=== PATIENT | male | born 1940 | race Caucasian/White ===

== ENCOUNTER → 2020-04-13 06:53 | Outpatient (CLI) | payer MEDICARE, OTHER, SELFPAY ==
--- NOTE | 2020-04-13 | DI.US.S_ITS ---
PROCEDURE: US CAROTID DOPPLER BI INDICATIONS: DIZZINESS TECHNIQUE: Color and pulse Doppler interrogation was performed of both carotid systems, with image documentation and velocity measurements. COMPARISON: None. FINDINGS: Stenosis calculations are based on SRU (Society of Radiologists in Ultrasound) criteria. Right side: Brachial blood pressure: 128/67 mm Hg. Common carotid artery peak systolic velocity: 75 cm/sec. Internal carotid artery peak systolic velocity: 89 cm/sec. Internal carotid artery end diastolic velocity: 20 cm/sec. External carotid artery peak systolic velocity: 100 to cm/sec. ICA/CCA peak systolic ratio: 1.2 . Paz scale imaging description: Mild calcific and soft plaque Percent internal carotid artery stenosis: Less than 50% stenosis . Vertebral artery: Flow direction is antegrade. Left side: Brachial blood pressure: 128/64 mm Hg. Common carotid artery peak systolic velocity: 120 cm/sec. Internal carotid artery peak systolic velocity: 87 cm/sec. Internal carotid artery end diastolic velocity: 15 cm/sec. External carotid artery peak systolic velocity: 128 cm/sec. ICA/CCA peak systolic ratio: 0.7 . Paz scale imaging description: Mild calcific and soft plaque Percent internal carotid artery stenosis: Less than 50% stenosis . Vertebral artery: Flow direction is antegrade. IMPRESSION: Less than 50% stenosis within the internal carotid arteries bilaterally. Vertebral arterial flow is antegrade in direction. Dictated by: Chad Ludwig M.D. on 04/13/2020 at 10:24 Approved by: Chad Ludwig M.D. on 04/13/2020 at 10:26
--- NOTE | 2020-04-13 07:02 | DI.ECHO.S_ITS ---
[facility] +---------+ : : [address] : : : : [id number] : : : : Phone: [phone] Echocardiogram Report + + :Name: CHAYA BOOGIE Study Date: 04/13/2020 Height: 70 in : :[facility] Weight: 180 lb : : Gender: Male BSA: 2.0 m2 : :: 1940 Age: 79 yrs BP: 166/86 mmHg: :Reason For Study: DYSPNEA : :Ordering Physician: JENNY, : :JOLLY Performed By: Shakira Dickey : :Referring: JOLLY ALVARADO : + + Interpretation Summary Afib with variable heart rate (49-63 bpm during exam). Normal LV size, wall thickness, wall motion and LV systolic function. EF is 60-65%. Severe biatrial enlargement. Mild MAC with mild associated mitral regurgitation. Aortic valve leaflets are mildly thickened and calcified; there is mild associated aortic regurgitation. Estimated PA systolic pressure is 40 mm Hg assuming RA pressure of 3 mm Hg. No prior study available for comparison. Procedure: A two-dimensional transthoracic echocardiogram with color flow and Doppler was performed. The study quality was technically adequate. There is no prior echocardiogram noted for this patient. The patient was in atrial fibrillation with heart rates between 49-63 bpm during the exam. Left Ventricle: The left ventricle is normal in size and wall thickness. The ejection fraction is estimated to be 60-65%. Diastolic function could not be accurately assessed due to atrial fibrillation. Right Ventricle: The right ventricle is normal in size and function. Atria: The left atrium is severely dilated. The right atrium is severely dilated. There is no Doppler evidence for an interatrial shunt. Mitral Valve: The mitral valve is normal in structure and function. There is mild mitral annular calcification. There is mild mitral regurgitation. Aortic Valve: The aortic valve is mildly calcified. The aortic valve is trileaflet. The aortic valve opens well. There is no aortic valve stenosis. There is mild aortic regurgitation. Tricuspid Valve: The tricuspid valve is not well visualized, but is grossly normal. The right ventricular systolic pressure is estimated to be at least 40 mmHg based on an estimated right atrial pressure of 3 mm Hg. There is mild tricuspid regurgitation. Pulmonic Valve: The pulmonic valve is not well seen, but is grossly normal. There is no pulmonic valvular regurgitation. Great Vessels: The aortic root is normal size. The ascending aorta is mildly enlarged. The IVC is of normal diameter and collapses greater than 50% with a sniff. This suggests a low right atrial pressure of 3 mm Hg. Pericardium/ Pleura There is no pericardial effusion. There is no pleural effusion. MMode/2D Measurements & Calculations LVIDd: 3.1 cm LVOT diam: 2.0 cm LVIDs: 2.1 cm Ao root diam: 3.3 cm FS: 32.8 % asc Aorta Diam: 3.5 cm EPSS: 0.75 cm Ao Arch Diam (Prox Trans): 3.6 cm IVSd: 0.86 cm LVPWd: 1.1 cm LV berrios. diameter/BSA (cm/m^2): 1.6 LV sys. diameter/BSA (cm/m^2): 1.1 LA A2 area: 30.2 cm2 RA long axis: 7.3 cm LA A4 area: 31.1 cm2 RA area: 33.1 cm2 LA length (vol): 7.5 cm RA vol: 126.7 ml LA vol: 107.1 ml RA : 63.5 ml/m2 LA vol index: 53.7 ml/m2 IVC diam: 1.6 cm RVD1 (basal): 3.7 cm TAPSE: 1.8 cm Doppler Measurements & Calculations Ao V2 max: 116.9 cm/sec LVOT Max Santo: 88.2 cm/sec Ao V2 mean: 82.2 cm/sec LV V1 max P.1 mmHg Ao max P.5 mmHg LV V1 VTI: 20.3 cm Ao mean P.1 mmHg FERNADNA(I,D): 2.3 cm2 Ao V2 VTI: 27.5 cm FERNANDA(V,D): 2.4 cm2 sev ratio: 0.74 FERNANDA indexed to BSA (cm^2/m^2): 1.2 MV E max santo: 131.8 cm/sec TR max santo: 305.0 cm/sec MV A max santo: 29.3 cm/sec TR max P.2 mmHg MV E/A: 4.5 PA V2 max: 82.2 cm/sec Med Peak E' Santo: 6.5 cm/sec PA V2 mean: 55.1 cm/sec E/E' med: 20.3 PA mean P.4 mmHg Lat Peak E' Santo: 10.1 cm/sec PA pr(Accel): 53.3 mmHg E/E' lat: 13.1 E/e' average: 16.7 MV dec time: 0.22 sec SV(LVOT): 64.4 ml Electronically signed by: Dorina Jimenez Physician:04/13/2020 07:25 PM
== END ==
PROVIDERS: PCP Family Medicine; Referring Provider Internal Medicine Cardiovascular Disease; Visit Provider Internal Medicine Cardiovascular Disease
DX: I65.23 Occlusion and stenosis of bilateral carotid arteries (principal); I08.3 Combined rheumatic disorders of mitral, aortic and tricuspid valves; I77.89 Other specified disorders of arteries and arterioles; R42 Dizziness and giddiness; R06.00 Dyspnea, unspecified; R00.2 Palpitations; R26.9 Unspecified abnormalities of gait and mobility
CPT/HCPCS: 93306; 93880

== ENCOUNTER 2021-01-07 22:46 | Observation (INO) | payer MEDICARE, OTHER, SELFPAY ==
[2021-01-07 22:49] VITALS: BP 143/66; PULSE 78; RESP 18; TEMP 37.2; O2SAT 97
--- NOTE | 2021-01-07 23:03 | DI.RAD.S_ITS ---
PROCEDURE: XR CHEST 1V INDICATIONS: chest pain TECHNIQUE: One view of the chest was acquired. COMPARISON: None. FINDINGS: Surgical changes and devices: None. Lungs and pleura: Bibasilar patchy airspace opacities. No pleural effusions or pneumothorax. Mediastinum: Mediastinal contours appear normal. Heart size is normal. Bones and chest wall: No suspicious bony lesions. Overlying soft tissues appear unremarkable. IMPRESSION: Bibasilar patchy airspace opacities, left greater than right, suspicious for pneumonia. Dictated by: Lainey Duron MD, PhD on 01/07/2021 at 23:33 Approved by: Lainey Duron MD, PhD on 01/07/2021 at 23:34
[2021-01-07 23:05] VITALS: BP 143/66; PULSE 82; O2SAT 98
[2021-01-07 23:07] VITALS: BP 140/65; PULSE 78; RESP 20; O2SAT 97
[2021-01-07 23:25] LABS: Add Manual Diff / Slide Review NO; Basophils Absolute Auto 0 /uL (0-100); Basophils Percent Auto 0.1 % (0-2); Eosinophils Absolute Auto 0 /uL (0-450); Eosinophils Percent Auto 0.3 % (2-4); Hematocrit 37.1 % (41-53); Hemoglobin 12.9 g/dL (13.5-17.5); Lymphocytes Absolute Auto 500 /uL (1100-4500); Lymphocytes Percent Auto 8.8 % (25-40); Mean Corpuscular HGB Conc 34.9 % (30-36); Mean Corpuscular Volume 88.7 fL (80-100); Monocytes Absolute Auto 400 /uL (0-900); Monocytes Percent Auto 7.6 % (3-14); Neutrophils Absolute Auto 4500 /uL (1500-7000); Neutrophils Percent Auto 83.2 % (50-75); Platelet Count 161 X10^3/uL (150-400); Red Blood Cell Count 4.18 X10^6/uL (4.5-5.9); Red Cell Distribution Width 14.9 % (11.6-14.8); White Blood Cell Count 5.4 X10^3/uL (4.5-11.0)
[2021-01-07 23:30] VITALS: BP 118/56; PULSE 76; RESP 22; O2SAT 94
[2021-01-07 23:33] LABS: Alanine Aminotransferase 31 IU/L (<50); Albumin 4.2 g/dL (3.5-5.0); Albumin Globulin Ratio 1.6 (1.0-2.8); Alkaline Phosphatase 76 U/L (38-126); Aspartate Aminotransferase 35 IU/L (17-59); Bilirubin Total 1.7 mg/dL (0.2-1.3); Blood Urea Nitrogen 24 mg/dL (9-20); Calcium 9.4 mg/dL (8.4-10.2); Carbon Dioxide 25 mmol/L (22-32); Chloride 88 mmol/L (98-107); Creatine Kinase 47 U/L (55-170); Estimated Glomerular Filt Rate > 60.0 mL/min (>60); Globulin 2.6 g/dL (1.7-4.1); Glucose 111 mg/dL (80-110); HEMOLYSIS < 15 (0-50); Lipase 113 U/L (23-300); Potassium 3.7 mmol/L (3.4-5.1); Sodium 124 mmol/L (137-145); Total Protein 6.8 g/dL (6.3-8.2)
[2021-01-07 23:45] LABS: Troponin I < 0.012 ng/mL (0.01-0.034)
[2021-01-08] VITALS (25 sets, daily range): BP systolic 115–167; BP diastolic 58–82; PULSE 61–80; RESP 15–27; TEMP 36.8–38.5; O2SAT 94–99; BMI 25.4
[2021-01-08] MEDS: ACETAMINOPHEN 325 MG TABLET 975 MG PO (03:09)
[2021-01-08] MEDS: SODIUM CHLORIDE 0.9% 1,000 ML 1000 ML IV (03:10)
[2021-01-08 03:31] LABS: NT-proBNP (BNP-Adult 18+) 834 pg/mL (<450)
[2021-01-08 03:38] LABS: Procalcitonin 0.11 ng/mL (<0.5)
--- NOTE | 2021-01-08 03:41 | ED_ITS ---
HPI - Weakness General Chief complaint: Weakness Stated complaint: COVID POSITIVE FEVER WEAKNESS Time Seen by Provider: 01/08/21 02:54 Source: patient and family Mode of arrival: Wheelchair Limitations: no limitations History of Present Illness HPI Narrative: This is an 80-year-old male comes emergency department with positive at home COVID test. Patient surgery experiencing symptoms November 29. Patient has had fevers intermittently. He has had occasional headaches. He denies any chest pain, no current shortness of breath. He denies any nausea or vomiting he had some loose stools but is not have any bloody diarrhea. No abdominal pain. Patient notes that he has had some generalized weakness. He significantly had issues getting out of chairs and been able to do so get from a seated position or lying position for the last 24-48 hours. Family patient states he seems quite a bit worse over the last 12 hours. Patient does have a cardiac history with cardiac stents. He is on aspirin, atorvastatin, h ydrochlorothiazide, Coreg, metformin and warfarin for atrial fibrillation. He has been taking hydroxychloroquine which he had prescribed by someone in [place]. Patient denies any tobacco use. He does drink 2-3 glasses of wine nightly, no recreational drugs. Related Data Home Medications Medication Instructions Recorded Confirmed aspirin 81 mg tablet 81 mg PO DAILY 01/07/21 01/08/21 atorvastatin 40 mg tablet (Lipitor) 40 mg PO DAILY 01/07/21 01/08/21 losartan 100 mg tablet (Cozaar) 100 mg PO DAILY 01/07/21 01/07/21 metformin 500 mg tablet 500 mg PO BID 01/07/21 01/08/21 warfarin 5 mg tablet 5 mg PO DAILY 01/07/21 01/08/21 Allergies Allergy/AdvReac Type Severity Reaction Status Date / Time No Known Drug Allergies Allergy Verified 01/08/21 10:19 Review of Systems Review of Systems ROS Unobtainable: All systems reviewed & are unremarkable except as noted in HPI and below Patient History Medical History (Updated 01/08/21 @ 08:28 by Mitul Campbell DO) Afib CAD (coronary artery disease) HTN (hypertension) Type 2 diabetes mellitus Surgical History (Updated 01/08/21 @ 08:28 by Mitul Campbell DO) Hx of heart artery stent Social History household members: significant other Smoking Status: Never smoker Smoking Status: Never smoker alcohol intake frequency: 0-2 drinks per day Exam Narrative Exam Narrative: GENERAL: Alert and oriented x three, elderly male in mild distress. Patient does feel warm to touch. HEENT: Head normocephalic, atraumatic, EOMI, pupils reactive, face symmetric, m oist mucous membranes NECK: Supple, full range of motion CARDIOVASCULAR: Regular rate and rhythm without murmurs, rubs or gallops. RESPIRATORY: Breath sounds equal bilaterally, no wheezes rales or rhonchi. No tachypnea accessory muscle use. ABDOMEN: Soft, nontender. Normoactive bowel sounds all 4 quadrants. No guarding or rebound, rigidity, no mass : No CVA tenderness EXTREMITIES: Normal range of motion, no clubbing or edema. Neurovascularly intact NEUROLOGICAL: Cranial nerves II through XII grossly intact. Moving all extremities SKIN: Warm, dry, no petechiae, no rashes or lesions. Initial Vital Signs Initial Vital Signs: Vital Signs Temperature 99.0 F 01/07/21 22:49 Pulse Rate 78 01/07/21 22:49 Respiratory Rate 18 01/07/21 22:49 Blood Pressure 143/66 H 01/07/21 22:49 Pulse Oximetry 97 01/07/21 22:49 Course Orders Ordered: Discontinued Medications Acetaminophen (Acetaminophen 325 Mg Tablet) 975 mg PO NOW ONE Stop: 01/08/21 03:05 Last Admin: 01/08/21 03:09 Dose: 975 mg Documented by: AMANDEEP Acetaminophen (Acetaminophen 325 Mg Tablet) 650 mg PO Q6HR PRN PRN Reason: Fever/Mild Pain (1-3) Atorvastatin Calcium (Atorvastatin 20 Mg Tablet) 40 mg PO DAILY KECIA Dextrose (Dextrose 50 % In Water 25 Gm/50 Ml Syringe) 25 gm IV PRN PRN PRN Reason: Hypoglycemia Enoxaparin Sodium (Enoxaparin 40 Mg/0.4 Ml Syringe) 40 mg SUBCUT DAILY KECIA Sodium Chloride (Normal Saline 0.9%) 1,000 mls @ 1,000 mls/hr IV BOLUS ONE Stop: 01/08/21 03:53 Last Infusion: 01/08/21 04:57 Dose: 0 mls/hr Documented by: Admin: 01/08/21 03:10 Dose: 1,000 mls/hr Documented by: AMANDEEP Insulin Human Lispro (Insulin Lispro 100 Unit/Ml 3ml Vial) 0 unit SUBCUT ACHS [facility]; Protocol Last Admin: 01/08/21 12:30 Dose: 2 unit Documented by: ZOYA Cosigned by: SARAVANAN Losartan Potassium (Losartan 50 Mg Tablet) 100 mg PO DAILY [facility] Naloxone HCl (Naloxone 0.4 Mg/Ml Vial) 0.2 mg IV Q2MIN PRN PRN Reason: Opiate Reversal Stored In Pharmacy 0 each PO . [facility] Potassium Chloride (Potassium Chloride 20 Meq Tab) 40 meq PO NOW ONE Stop: 01/08/21 12:02 Last Admin: 01/08/21 12:28 Dose: 40 meq Documented by: ZOYA Warfarin Sodium (Warfarin 5 Mg Tablet) 5 mg PO DAILY [facility] Consultations Consultation #1: CATRINA Owen, initially reviewed patient. Patient has not been hypoxic but is hyponatremic. She asks that we give 1L fluids. Plan to recontact when rest of labs are back. Discussed today's findings, patient is positive for COVID pneumonia with elevated markers. He is not hypoxic. His vital signs been fairly appropriate he has been febrile in department. He is complaining of weakness and had difficulty ambulating at home. She asked that repeat electrolytes as patient is hyponatremic. And she feels uncomfortable accepting at this time and would like to discuss with the hospitalist. Vital Signs Vital signs: Vital Signs - 8 hr 01/07/21 22:49 01/07/21 23:05 01/07/21 23:07 Temperature 99.0 F Pulse Rate 78 82 78 Respiratory Rate 18 20 Blood Pressure 143/66 H 143/66 H 140/65 Pulse Oximetry 97 98 97 01/07/21 23:30 01/08/21 00:00 01/08/21 00:30 Temperature Pulse Rate 76 74 74 Respiratory Rate 22 21 20 Blood Pressure 118/56 L 122/58 L 130/61 Pulse Oximetry 94 95 95 01/08/21 01:00 01/08/21 01:30 01/08/21 02:00 Temperature Pulse Rate 78 73 73 Respiratory Rate 21 20 20 Blood Pressure 134/69 141/66 H 130/64 Pulse Oximetry 96 97 98 01/08/21 02:30 01/08/21 03:00 01/08/21 03:30 Temperature 101.3 F H Pulse Rate 75 77 71 Respiratory Rate 19 27 H 21 Blood Pressure 144/68 H 161/72 H 167/73 H Pulse Oximetry 96 98 98 01/08/21 04:00 01/08/21 04:13 Temperature 98.3 F Pulse Rate 77 Respiratory Rate Blood Pressure 152/67 H Pulse Oximetry 96 MDM - Weakness Lab Data Result diagrams: 01/07/21 23:15 01/08/21 15:20 Labs: Lab Results 01/07/21 01/07/21 01/07/21 Range/Units 23:15 23:15 23:15 WBC 5.4 (4.5-11.0) X10^3/uL RBC 4.18 L (4.5-5.9) X10^6/uL Hgb 12.9 L (13.5-17.5) g/dL Hct 37.1 L (41-53) % MCV 88.7 (80-100) fL MCH 31.0 (26-34) PG MCHC 34.9 (30-36) % RDW 14.9 H (11.6-14.8) % Plt Count 161 (150-400) X10^3/uL Neut % (Auto) 83.2 H (50-75) % Lymph % (Auto) 8.8 L (25-40) % Emanuel % (Auto) 7.6 (3-14) % Eos % (Auto) 0.3 L (2-4) % Baso % (Auto) 0.1 (0-2) % Neut # (Auto) 4500 (1655-3536) /uL Lymph # (Auto) 500 L (3831-3621) /uL Emanuel # (Auto) 400 (0-900) /uL Eos # (Auto) 0 (0-450) /uL Baso # (Auto) 0 (0-100) /uL PT (10.1-12.7) SECONDS INR (0.9-1.3) D-Dimer (<230) ng/mL Sodium 124 L (137-145) mmol/L Potassium 3.7 (3.4-5.1) mmol/L Chloride 88 L (98-107) mmol/L Carbon Dioxide 25 (22-32) mmol/L BUN 24 H (9-20) mg/dL Creatinine 0.89 (0.66-1.25) mg/dL Estimated GFR > 60.0 (>60) mL/min BUN/Creatinine Ratio 27.0 H (6-22) Glucose 111 H (80-110) mg/dL Lactate (0.7-2.1) mmol/L Calcium 9.4 (8.4-10.2) mg/dL Ferritin 648 H (18-464) ng/mL Total Bilirubin 1.7 H (0.2-1.3) mg/dL AST 35 (17-59) IU/L ALT 31 (<50) IU/L Alkaline Phosphatase 76 (38-126) U/L Total Creatine Kinase 47 L (55-170) U/L CK-MB (CK-2) TNP CK-MB (CK-2) Rel Index TNP Troponin I < 0.012 (0.01-0.034) ng/mL C-Reactive Protein 6.0 H (<1.0) mg/dL NT-Pro-B Natriuret Pep 834 H (<450) pg/mL Total Protein 6.8 (6.3-8.2) g/dL Albumin 4.2 (3.5-5.0) g/dL Globulin 2.6 (1.7-4.1) g/dL Albumin/Globulin Ratio 1.6 (1.0-2.8) Lipase 113 (23-300) U/L Procalcitonin 0.11 (<0.5) ng/mL SARS-CoV-2 (PCR) (Negative) 01/07/21 01/08/21 01/08/21 Range/Units 23:15 03:18 03:18 WBC (4.5-11.0) X10^3/uL RBC (4.5-5.9) X10^6/uL Hgb (13.5-17.5) g/dL Hct (41-53) % MCV (80-100) fL MCH (26-34) PG MCHC (30-36) % RDW (11.6-14.8) % Plt Count (150-400) X10^3/uL Neut % (Auto) (50-75) % Lymph % (Auto) (25-40) % Emanuel % (Auto) (3-14) % Eos % (Auto) (2-4) % Baso % (Auto) (0-2) % Neut # (Auto) (4398-9724) /uL Lymph # (Auto) (2857-3936) /uL Emanuel # (Auto) (0-900) /uL Eos # (Auto) (0-450) /uL Baso # (Auto) (0-100) /uL PT 25.6 H (10.1-12.7) SECONDS INR 2.2 H (0.9-1.3) D-Dimer 807 H (<230) ng/mL Sodium (137-145) mmol/L Potassium (3.4-5.1) mmol/L Chloride (98-107) mmol/L Carbon Dioxide (22-32) mmol/L BUN (9-20) mg/dL Creatinine (0.66-1.25) mg/dL Estimated GFR (>60) mL/min BUN/Creatinine Ratio (6-22) Glucose (80-110) mg/dL Lactate 2.0 (0.7-2.1) mmol/L Calcium (8.4-10.2) mg/dL Ferritin (18-464) ng/mL Total Bilirubin (0.2-1.3) mg/dL AST (17-59) IU/L ALT (<50) IU/L Alkaline Phosphatase (38-126) U/L Total Creatine Kinase (55-170) U/L CK-MB (CK-2) CK-MB (CK-2) Rel Index Troponin I (0.01-0.034) ng/mL C-Reactive Protein (<1.0) mg/dL NT-Pro-B Natriuret Pep (<450) pg/mL Total Protein (6.3-8.2) g/dL Albumin (3.5-5.0) g/dL Globulin (1.7-4.1) g/dL Albumin/Globulin Ratio (1.0-2.8) Lipase (23-300) U/L Procalcitonin (<0.5) ng/mL SARS-CoV-2 (PCR) (Negative) 01/08/21 01/08/21 Range/Units 04:15 05:40 WBC (4.5-11.0) X10^3/uL RBC (4.5-5.9) X10^6/uL Hgb (13.5-17.5) g/dL Hct (41-53) % MCV (80-100) fL MCH (26-34) PG MCHC (30-36) % RDW (11.6-14.8) % Plt Count (150-400) X10^3/uL Neut % (Auto) (50-75) % Lymph % (Auto) (25-40) % Emanuel % (Auto) (3-14) % Eos % (Auto) (2-4) % Baso % (Auto) (0-2) % Neut # (Auto) (7374-6369) /uL Lymph # (Auto) (6006-4013) /uL Emanuel # (Auto) (0-900) /uL Eos # (Auto) (0-450) /uL Baso # (Auto) (0-100) /uL PT (10.1-12.7) SECONDS INR (0.9-1.3) D-Dimer (<230) ng/mL Sodium 125 L (137-145) mmol/L Potassium 3.3 L (3.4-5.1) mmol/L Chloride 94 L (98-107) mmol/L Carbon Dioxide 23 (22-32) mmol/L BUN 22 H (9-20) mg/dL Creatinine 0.67 (0.66-1.25) mg/dL Estimated GFR > 60.0 (>60) mL/min BUN/Creatinine Ratio 32.8 H (6-22) Glucose 100 (80-110) mg/dL Lactate (0.7-2.1) mmol/L Calcium 8.7 (8.4-10.2) mg/dL Ferritin (18-464) ng/mL Total Bilirubin (0.2-1.3) mg/dL AST (17-59) IU/L ALT (<50) IU/L Alkaline Phosphatase (38-126) U/L Total Creatine Kinase (55-170) U/L CK-MB (CK-2) CK-MB (CK-2) Rel Index Troponin I (0.01-0.034) ng/mL C-Reactive Protein (<1.0) mg/dL NT-Pro-B Natriuret Pep (<450) pg/mL Total Protein (6.3-8.2) g/dL Albumin (3.5-5.0) g/dL Globulin (1.7-4.1) g/dL Albumin/Globulin Ratio (1.0-2.8) Lipase (23-300) U/L Procalcitonin (<0.5) ng/mL SARS-CoV-2 (PCR) Positive H (Negative) Imaging Data Chest x-ray: Radiologist Impression: [address] [id number] ReportSigned Patient: Franco Rodríguez CMR#: [id number]: [id number]:[id number]/Sex: 80 / MDate of Service: 01/07/21Loc: EDAccession Number: [id number] Procedure: XR chest 1V Ordering Provider: Adela Murphy D.O. PROCEDURE: XR CHEST 1V INDICATIONS: chest pain TECHNIQUE: One view of the chest was acquired. COMPARISON: None. FINDINGS: Surgical changes and devices: None. Lungs and pleura: Bibasilar patchy airspace opacities. No pleural effusions or pneumothorax. Mediastinum: Mediastinal contours appear normal. Heart size is normal. Bones and chest wall: No suspicious bony lesions. Overlying soft tissues appear unremarkable. IMPRESSION: Bibasilar patchy airspace opacities, left greater than right, suspicious for pneumonia. Dictated by: Lainey Duron MD, PhD on 01/07/2021 at 23:33 Approved by: Lainey Duron MD, PhD on 01/07/2021 at 23:34 ECG Data Attestation: I personally reviewed and interpreted this ECG as follows: Prior ECG tracings: not available for review Interpretation: AFib, rate 80, QRS 88 QTC of 449. No acute ST changes. MDM Narrative Medical decision making narrative: This is an 80-year-old male with known COVID with home testing. Patient denies any significant respiratory difficulties. His vital signs are stable but he has noted he is becoming increasingly weak. He is hyponatremic on his lab work with elevated markers for COVID infection. Patient is noted to be taking hydroxychloroquine, he is also on losartan which may be contributing to his hyponatremia. Case was discussed with CATRINA Owen, who recommend giving a L of fluid bolus and we recheck sodium which went from 06/2507/03/2024. She signed out the case to the daytime hospitalist Dr. Campbell who came and evaluated the patient for possible observation for generalized weakness, hyponatremia with acute neurologic changes in the setting of the COVID pneumonia. Patient signed out to Dr. Villa while awaiting hospitalist to evaluate patient. Patient did ambulate in the department to bathroom x 1. Discharge Plan Departure Patient Disposition: Admitted as Observation Clinical Impression: Pneumonia due to COVID-19 virus, Acute hyponatremia, Weakness Admit Date/Time: 01/08/21 08:20 Admit Provider: Mitul Campbell
[2021-01-08 03:46] LABS: D Dimer 807 ng/mL (<230)
[2021-01-08 03:53] LABS: INR 2.2 (0.9-1.3); Prothrombin Time 25.6 SECONDS (10.1-12.7)
[2021-01-08 03:56] LABS: Ferritin 648 ng/mL (18-464)
[2021-01-08 04:59] LABS: COVID19 - ADMIT (NP swab/PCR) POSITIVE (Negative)
[2021-01-08 05:54] LABS: BUN Creatinine Ratio 32.8 (6-22); Blood Urea Nitrogen 22 mg/dL (9-20); Calcium 8.7 mg/dL (8.4-10.2); Carbon Dioxide 23 mmol/L (22-32); Chloride 94 mmol/L (98-107); Estimated Glomerular Filt Rate > 60.0 mL/min (>60); Glucose 100 mg/dL (80-110); HEMOLYSIS < 15 (0-50); Potassium 3.3 mmol/L (3.4-5.1); Sodium 125 mmol/L (137-145)
--- NOTE | 2021-01-08 08:25 | P.HP_ITS ---
History of Present Illness History of Present Illness Date Patient Seen: 01/08/21 Time Patient Seen: 07:30 Chief complaint: COVID POSITIVE FEVER WEAKNESS Narrative: This is an 80 year old male with PMH of type 2 diabetes, HTN, CAD, afib on coumadin who presented to the hospital with one day of increasing weakness and difficulty arising out of a chair. He was diagnosed with COVID-19 on 12/30, began with symptoms on 12/28 starting as a head cold. Last few days has had clear diarrhea, fever to 101 at home. Denies chest pain or shortness of breath. No lower extremity edema or rashes. He denies any muscle pain. No slurred speech of focal weakness, numbness. In the emergency room, patient had fever to 101.3, labs notable for sodium of 124, K3.3. Na Improved to 125 with 1L NS bolus. Discussion about possible discharge home or admission with patient, patient and son at bedside opted for observation with hyponatremia. Patient History Medical History (Updated 01/08/21 @ 08:28 by Mitul Campbell DO) Afib CAD (coronary artery disease) HTN (hypertension) Type 2 diabetes mellitus Surgical History (Updated 01/08/21 @ 08:28 by Mitul Campbell DO) Hx of heart artery stent Family & Social History Family history unavailable: No (No relevant past family history) Tobacco & Substance use: Smoking Status Never smoker alcohol intake frequency 0-2 drinks per day Meds Home Medications and Allergies Home Medications Medication Instructions Recorded Confirmed Type aspirin 81 mg tablet 81 mg PO DAILY 01/07/21 01/08/21 History atorvastatin 40 mg tablet (Lipitor) 40 mg PO DAILY 01/07/21 01/08/21 History hydrochlorothiazide 25 mg tablet 25 mg PO DAILY 01/07/21 01/07/21 History hydroxychloroquine 200 mg tablet mg 01/07/21 History losartan 100 mg tablet (Cozaar) 100 mg PO DAILY 01/07/21 01/07/21 History metformin 500 mg tablet 500 mg PO BID 01/07/21 01/08/21 History warfarin 5 mg tablet 5 mg PO DAILY 01/07/21 01/08/21 History Allergies Allergy/AdvReac Type Severity Reaction Status Date / Time No Known Drug Allergies Allergy Verified 01/08/21 10:19 Review of Systems Review of Systems Narrative: All other systems reviewed with the patient and are negative unless otherwise stated. Exam Vital Signs (past 8 hours): - 01/08/21 00:30 01/08/21 01:00 01/08/21 01:30 Temperature Pulse Rate 74 78 73 Respiratory Rate 20 21 20 Blood Pressure 130/61 134/69 141/66 H Pulse Oximetry 95 96 97 01/08/21 02:00 01/08/21 02:30 01/08/21 03:00 Temperature 101.3 F H Pulse Rate 73 75 77 Respiratory Rate 20 19 27 H Blood Pressure 130/64 144/68 H 161/72 H Pulse Oximetry 98 96 98 01/08/21 03:30 01/08/21 04:00 01/08/21 04:13 Temperature 98.3 F Pulse Rate 71 77 Respiratory Rate 21 Blood Pressure 167/73 H 152/67 H Pulse Oximetry 98 96 01/08/21 04:30 01/08/21 05:00 01/08/21 05:30 Temperature Pulse Rate 71 67 65 Respiratory Rate 16 18 16 Blood Pressure 133/63 134/64 134/62 Pulse Oximetry 96 94 96 01/08/21 06:00 01/08/21 06:30 Temperature Pulse Rate 66 64 Respiratory Rate 15 15 Blood Pressure 119/58 L 136/60 Pulse Oximetry 94 96 Oxygen Delivery Method Room Air Narrative Exam Narrative: GENERAL APPEARANCE: Well developed, well nourished, in no acute distress. SKIN: Inspection of the skin reveals no rashes, ulcerations or petechiae. HEENT: Normocephalic atraumatic, extraocular muscles are intact, oropharynx is clear and mucous membranes are moist, neck is supple without adenopathy NECK: Supple and symmetric. There was no thyroid enlargement, and no tenderness, or masses were felt. CHEST: Normal AP diameter and normal contour without any kyphoscoliosis. LUNGS: Auscultation of the lungs revealed no wheezes, rhonchi, or rales. CARDIOVASCULAR: There was a regular rate and rhythm without any murmurs, gallops, rubs. Peripheral pulses were 2+ and symmetric. ABDOMEN: Soft and nontender with normal bowel sounds. No ascites was noted. MUSCULOSKELETAL: There was no tenderness or effusions noted. Muscle strength and tone were normal. EXTREMITIES: No cyanosis, clubbing or edema. NEUROLOGIC: Alert and oriented x 3. Normal affect. ambulatory in ER with minimal assistance, steady when standing by self. Strength is +5/5 in the Upper Extremities and Lower Extremities Bilaterally. Sensation to touch was normal. Objective ECG Impression: afib with controlled rate, no acute evidence of ischemia. Imaging Chest x-ray: My impression: Mild bilateral patchy infiltrates. Labs Result Diagrams: 01/07/21 23:15 01/08/21 05:40 Labs: Laboratory Results - last 24 hr 01/07/21 01/07/21 01/07/21 23:15 23:15 23:15 WBC 5.4 RBC 4.18 L Hgb 12.9 L Hct 37.1 L MCV 88.7 MCH 31.0 MCHC 34.9 RDW 14.9 H Plt Count 161 Neut % (Auto) 83.2 H Lymph % (Auto) 8.8 L [place] % (Auto) 7.6 Eos % (Auto) 0.3 L Baso % (Auto) 0.1 Neut # (Auto) 4500 Lymph # (Auto) 500 L [place] # (Auto) 400 Eos # (Auto) 0 Baso # (Auto) 0 PT INR D-Dimer Sodium 124 L Potassium 3.7 Chloride 88 L Carbon Dioxide 25 BUN 24 H Creatinine 0.89 Estimated GFR > 60.0 BUN/Creatinine Ratio 27.0 H Glucose 111 H Lactate Calcium 9.4 Ferritin 648 H Total Bilirubin 1.7 H AST 35 ALT 31 Alkaline Phosphatase 76 Total Creatine Kinase 47 L CK-MB (CK-2) TNP CK-MB (CK-2) Rel Index TNP Troponin I < 0.012 C-Reactive Protein 6.0 H NT-Pro-B Natriuret Pep 834 H Total Protein 6.8 Albumin 4.2 Globulin 2.6 Albumin/Globulin Ratio 1.6 Lipase 113 Procalcitonin 0.11 SARS-CoV-2 (PCR) 01/07/21 01/08/21 01/08/21 23:15 03:18 03:18 WBC RBC Hgb Hct MCV MCH MCHC RDW Plt Count Neut % (Auto) Lymph % (Auto) [place] % (Auto) Eos % (Auto) Baso % (Auto) Neut # (Auto) Lymph # (Auto) [place] # (Auto) Eos # (Auto) Baso # (Auto) PT 25.6 H INR 2.2 H D-Dimer 807 H Sodium Potassium Chloride Carbon Dioxide BUN Creatinine Estimated GFR BUN/Creatinine Ratio Glucose Lactate 2.0 Calcium Ferritin Total Bilirubin AST ALT Alkaline Phosphatase Total Creatine Kinase CK-MB (CK-2) CK-MB (CK-2) Rel Index Troponin I C-Reactive Protein NT-Pro-B Natriuret Pep Total Protein Albumin Globulin Albumin/Globulin Ratio Lipase Procalcitonin SARS-CoV-2 (PCR) 01/08/21 01/08/21 04:15 05:40 WBC RBC Hgb Hct MCV MCH MCHC RDW Plt Count Neut % (Auto) Lymph % (Auto) [place] % (Auto) Eos % (Auto) Baso % (Auto) Neut # (Auto) Lymph # (Auto) [place] # (Auto) Eos # (Auto) Baso # (Auto) PT INR D-Dimer Sodium 125 L Potassium 3.3 L Chloride 94 L Carbon Dioxide 23 BUN 22 H Creatinine 0.67 Estimated GFR > 60.0 BUN/Creatinine Ratio 32.8 H Glucose 100 Lactate Calcium 8.7 Ferritin Total Bilirubin AST ALT Alkaline Phosphatase Total Creatine Kinase CK-MB (CK-2) CK-MB (CK-2) Rel Index Troponin I C-Reactive Protein NT-Pro-B Natriuret Pep Total Protein Albumin Globulin Albumin/Globulin Ratio Lipase Procalcitonin SARS-CoV-2 (PCR) Positive H Assessment & Plan Assessment & Plan narrative: This is an 80 year old male with PMH of type 2 diabetes, HTN, CAD, afib on coumadin who presented to the hospital with one day of increasing weakness and difficulty arising out of a chair. Admitted under observation status for hyponatremia. 1. Acute mild hyponatremia, present on admission - presumed hypovolemic due to GI losses from COVID diarrhea. No prior known sodium values available. Will check UA and urine sodium to confirm. Na improved from 124 to 125 with 1L NS. Will encourage PO hydration today, recheck this afternoon and if improving he can be discharged home. - patient also on a thiazide, will hold, likely contributing. 2. COVID 19 infection / pneumonia - no respiratory failure at this time. Mildly elevated inflammatory markers. No shortness of breath currently. Continue supportive care. 3. HTN continue home meds except for thiazide. 4. afib on coumadin, unknown type. - continue home medications 5. CAD - continue asa statin 6. type 2 diabetes - carb controlled diet. sliding scale as needed. 7. weakness - likely secondary to acute illness, mild hyponatremia and dehydration. Patient was ambulatory with minimal assistance in the ER. No need for PT at this time. admit as observation, possible discharge home later today if sodium improving without additional fluids and no worsening respiratory symptoms code; Full, surrogate decision maker is the patient's son DVT: lovenox daily. I have utilized all available immediate resources to obtain, update, or review the patient's current medications. COVID-19 COVID-19 status: Positive Quality MIPS - Admit I confirm the patient?s Advance Care Plan is present, Code status is documented, Surrogate decision maker is in patient?s record [If Yes, STOP here]: Yes
--- NOTE | 2021-01-08 09:27 | PC.NURSE ---
pt ambulated to the restroom from rm 8 near room 9, with standby assist. pt tolerated well, sats 98% hr 82.
[2021-01-08 11:11] LABS: Sodium Urine Random 40 mmol/L (30-90)
[2021-01-08 11:32] LABS: Bacteria Urine None Seen; RBC Urine None Seen (0-5/HPF); WBC Urine None Seen (0-5/HPF)
[2021-01-08 11:33] LABS: Appearance Urine UA CLEAR; Bilirubin Urine UA NEGATIVE (NEGATIVE); Color Urine UA YELLOW; Glucose Urine UA NEGATIVE (Negative); Ketones Urine UA NEGATIVE (NEGATIVE); Leukocyte Esterase Urine UA NEGATIVE (NEGATIVE); Nitrite Urine UA NEGATIVE (Negative); Occult Blood Urine UA TRACE-INTACT (Negative); Protein Urine UA NEGATIVE (Negative); Specific Gravity Urine UA <=1.005 (1.000-1.035); Urobilinogen Urine UA 0.2 E.U./dL (0.2)
[2021-01-08 11:36] LABS: Culture Indicated Urine Cult Not Indicated; Urine Comments Microscopic Normal
[2021-01-08] MEDS: POTASSIUM CHLORIDE 20 MEQ TAB 40 MEQ PO (12:28)
[2021-01-08] MEDS: INSULIN LISPRO 100 UNIT/ML 3ML VIAL SUBCUT (12:30)
--- NOTE | 2021-01-08 15:19 | PC.NURSE ---
On unit around 10:00 from ED. A&O x4. VSS. Denies pain. O2 99% on room air. Independent in room. Call light within reach, bed low.
[2021-01-08 15:54] LABS: Blood Urea Nitrogen 23 mg/dL (9-20); Calcium 9.3 mg/dL (8.4-10.2); Carbon Dioxide 26 mmol/L (22-32); Chloride 93 mmol/L (98-107); Estimated Glomerular Filt Rate > 60.0 mL/min (>60); Glucose 89 mg/dL (80-110); HEMOLYSIS < 15 (0-50); Potassium 4.1 mmol/L (3.4-5.1); Sodium 128 mmol/L (137-145)
--- NOTE | 2021-01-08 16:05 | P.DS_ITS ---
History of Present Illness History of Present Illness Date Patient Seen: 01/08/21 Time Patient Seen: 16:06 Chief complaint: COVID POSITIVE FEVER WEAKNESS Narrative: This is an 80 year old male with PMH of type 2 diabetes, HTN, CAD, afib on coumadin who presented to the hospital with one day of increasing weakness and difficulty arising out of a chair. He was diagnosed with COVID-19 on 12/30, began with symptoms on 12/28 starting as a head cold. Last few days has had clear diarrhea, fever to 101 at home. Denies chest pain or shortness of breath. No lower extremity edema or rashes. He denies any muscle pain. No slurred speech of focal weakness, numbness. In the emergency room, patient had fever to 101.3, labs notable for sodium of 124, K3.3. Na Improved to 125 with 1L NS bolus. Discussion about possible discharge home or admission with patient, patient and son at bedside opted for observation with hyponatremia. Discharge Providers Provider Date of admission: 01/08/21 08:20 Discharge Date: 01/08/21 Primary care physician: Sree Carnes DO Discharge provider: Mitul Campbell DO Summary Hospital Course Discharge Diagnosis: 1. Acute mild hyponatremia, present on admission, improved 2. COVID 19 infection / pneumonia 3. HTN 4. afib on coumadin, unable to further determine type, possibly chronic 5. CAD, chronic 6. type 2 diabetes 7. weakness Hospital Course: This is an 80-year-old male with a past medical history of CAD, hypertension, atrial fibrillation on Coumadin, type 2 diabetes who presented to the hospital with weakness. He was known COVID positive and was diagnosed with this on 12/30/2020. He was admitted under observation status for a mild hyponatremia. His hyponatremia was likely due to volume depletion in the setting of diarrhea as well as continuation of his home HCTZ. I have recommended cessation of his hydrochlorothiazide at this time, but he can resume all of his other home medications. His weakness is more likely from his COVID- 19 infection, for which treatment is supportive care. He was not hypoxic during his hospital stay and did not require steroid or antiviral treatments. The patient was ambulatory in his room without assistance. He is currently stable for discharge home. He was also recommended to stop hydroxychloroquine as this can also lead to muscle weakness, amongst other effects and has no proven efficacy in COVID infection. Would recommend follow up with his PCP for consideration of antibody treatments. Exam Vital Signs (past 8 hours): - 01/08/21 08:17 01/08/21 08:30 01/08/21 09:00 Temperature Pulse Rate 68 66 61 Respiratory Rate Blood Pressure Pulse Oximetry 96 97 99 01/08/21 10:16 01/08/21 10:30 01/08/21 12:00 Temperature 98.2 F 98.4 F Pulse Rate 69 72 Respiratory Rate 15 18 Blood Pressure 135/73 115/82 Pulse Oximetry 98 98 99 01/08/21 14:16 01/08/21 15:56 Temperature 98.5 F Pulse Rate 80 Respiratory Rate 18 Blood Pressure 149/81 H Pulse Oximetry 99 98 Oxygen Delivery Method Room Air Oxygen Flow Rate 0 Narrative Exam Narrative: GENERAL APPEARANCE: Well developed, well nourished, in no acute distress. SKIN: Inspection of the skin reveals no rashes, ulcerations or petechiae. HEENT: Normocephalic atraumatic, extraocular muscles are intact, oropharynx is clear and mucous membranes are moist, neck is supple without adenopathy NECK: Supple and symmetric. There was no thyroid enlargement, and no tenderness, or masses were felt. CHEST: Normal AP diameter and normal contour without any kyphoscoliosis. LUNGS: Auscultation of the lungs revealed no wheezes, rhonchi, or rales. CARDIOVASCULAR: There was a regular rate and rhythm without any murmurs, gall ops, rubs. Peripheral pulses were 2+ and symmetric. ABDOMEN: Soft and nontender with normal bowel sounds. No ascites was noted. MUSCULOSKELETAL: There was no tenderness or effusions noted. Muscle strength and tone were normal. EXTREMITIES: No cyanosis, clubbing or edema. NEUROLOGIC: Alert and oriented x 3. Normal affect. ambulatory in ER with minimal assistance, steady when standing by self. Ambulated to bathroom by self in hospital room. Strength is +5/5 in the Upper Extremities and Lower Extremities Bilaterally. Sensation to touch was normal. Objective Labs Result Diagrams: 01/07/21 23:15 01/08/21 15:20 Labs: Laboratory Results - last 24 hr 01/07/21 01/07/21 01/07/21 23:15 23:15 23:15 WBC 5.4 RBC 4.18 L Hgb 12.9 L Hct 37.1 L MCV 88.7 MCH 31.0 MCHC 34.9 RDW 14.9 H Plt Count 161 Neut % (Auto) 83.2 H Lymph % (Auto) 8.8 L [place] % (Auto) 7.6 Eos % (Auto) 0.3 L Baso % (Auto) 0.1 Neut # (Auto) 4500 Lymph # (Auto) 500 L [place] # (Auto) 400 Eos # (Auto) 0 Baso # (Auto) 0 PT INR D-Dimer Sodium 124 L Potassium 3.7 Chloride 88 L Carbon Dioxide 25 BUN 24 H Creatinine 0.89 Estimated GFR > 60.0 BUN/Creatinine Ratio 27.0 H Glucose 111 H Lactate Calcium 9.4 Ferritin 648 H Total Bilirubin 1.7 H AST 35 ALT 31 Alkaline Phosphatase 76 Total Creatine Kinase 47 L CK-MB (CK-2) TNP CK-MB (CK-2) Rel Index TNP Troponin I < 0.012 C-Reactive Protein 6.0 H NT-Pro-B Natriuret Pep 834 H Total Protein 6.8 Albumin 4.2 Globulin 2.6 Albumin/Globulin Ratio 1.6 Lipase 113 Procalcitonin 0.11 Urine Color Urine Appearance Urine pH Ur Specific [place] Urine Protein Urine Glucose (UA) Urine Ketones Urine Occult Blood Urine Nitrate Urine Bilirubin Urine Urobilinogen Ur Leukocyte Esterase Urine RBC Urine WBC Urine Bacteria Ur Culture Indicated? Micro UA Comment Ur Random Sodium SARS-CoV-2 (PCR) 01/07/21 01/08/21 01/08/21 23:15 03:18 03:18 WBC RBC Hgb Hct MCV MCH MCHC RDW Plt Count Neut % (Auto) Lymph % (Auto) [place] % (Auto) Eos % (Auto) Baso % (Auto) Neut # (Auto) Lymph # (Auto) [place] # (Auto) Eos # (Auto) Baso # (Auto) PT 25.6 H INR 2.2 H D-Dimer 807 H Sodium Potassium Chloride Carbon Dioxide BUN Creatinine Estimated GFR BUN/Creatinine Ratio Glucose Lactate 2.0 Calcium Ferritin Total Bilirubin AST ALT Alkaline Phosphatase Total Creatine Kinase CK-MB (CK-2) CK-MB (CK-2) Rel Index Troponin I C-Reactive Protein NT-Pro-B Natriuret Pep Total Protein Albumin Globulin Albumin/Globulin Ratio Lipase Procalcitonin Urine Color Urine Appearance Urine pH Ur Specific [place] Urine Protein Urine Glucose (UA) Urine Ketones Urine Occult Blood Urine Nitrate Urine Bilirubin Urine Urobilinogen Ur Leukocyte Esterase Urine RBC Urine WBC Urine Bacteria Ur Culture Indicated? Micro UA Comment Ur Random Sodium SARS-CoV-2 (PCR) 01/08/21 01/08/21 01/08/21 04:15 05:40 10:25 WBC RBC Hgb Hct MCV MCH MCHC RDW Plt Count Neut % (Auto) Lymph % (Auto) [place] % (Auto) Eos % (Auto) Baso % (Auto) Neut # (Auto) Lymph # (Auto) [place] # (Auto) Eos # (Auto) Baso # (Auto) PT INR D-Dimer Sodium 125 L Potassium 3.3 L Chloride 94 L Carbon Dioxide 23 BUN 22 H Creatinine 0.67 Estimated GFR > 60.0 BUN/Creatinine Ratio 32.8 H Glucose 100 Lactate Calcium 8.7 Ferritin Total Bilirubin AST ALT Alkaline Phosphatase Total Creatine Kinase CK-MB (CK-2) CK-MB (CK-2) Rel Index Troponin I C-Reactive Protein NT-Pro-B Natriuret Pep Total Protein Albumin Globulin Albumin/Globulin Ratio Lipase Procalcitonin Urine Color Urine Appearance Urine pH Ur Specific [place] Urine Protein Urine Glucose (UA) Urine Ketones Urine Occult Blood Urine Nitrate Urine Bilirubin Urine Urobilinogen Ur Leukocyte Esterase Urine RBC Urine WBC Urine Bacteria Ur Culture Indicated? Micro UA Comment Ur Random Sodium 40 SARS-CoV-2 (PCR) Positive H 01/08/21 01/08/21 10:25 15:20 WBC RBC Hgb Hct MCV MCH MCHC RDW Plt Count Neut % (Auto) Lymph % (Auto) [place] % (Auto) Eos % (Auto) Baso % (Auto) Neut # (Auto) Lymph # (Auto) [place] # (Auto) Eos # (Auto) Baso # (Auto) PT INR D-Dimer Sodium 128 L Potassium 4.1 Chloride 93 L Carbon Dioxide 26 BUN 23 H Creatinine 0.82 Estimated GFR > 60.0 BUN/Creatinine Ratio 28.0 H Glucose 89 Lactate Calcium 9.3 Ferritin Total Bilirubin AST ALT Alkaline Phosphatase Total Creatine Kinase CK-MB (CK-2) CK-MB (CK-2) Rel Index Troponin I C-Reactive Protein NT-Pro-B Natriuret Pep Total Protein Albumin Globulin Albumin/Globulin Ratio Lipase Procalcitonin Urine Color Yellow Urine Appearance Clear Urine pH 6.0 Ur Specific [place] <=1.005 Urine Protein Negative Urine Glucose (UA) Negative Urine Ketones Negative Urine Occult Blood Trace-intact Urine Nitrate Negative Urine Bilirubin Negative Urine Urobilinogen 0.2 Ur Leukocyte Esterase Negative Urine RBC None seen Urine WBC None seen Urine Bacteria None seen Ur Culture Indicated? Cult not indicated Micro UA Comment Microscopic normal Ur Random Sodium SARS-CoV-2 (PCR) PFSH Medical History (Updated 01/08/21 @ 08:28 by Mitul Campbell DO) Afib CAD (coronary artery disease) HTN (hypertension) Type 2 diabetes mellitus Surgical History (Updated 01/08/21 @ 08:28 by Mitul Campbell DO) Hx of heart artery stent Social History household members: significant other Smoking Status: Never smoker Discharge Plan Discharge Plan Patient Disposition: Home Provider Discharge Comment: You were admitted to the hospital with a low sodium level. This is now back to near normal. Continue to stay well hydrated at home, please also stop taking HCTZ. You can resume your other BP medications starting tomorrow. Please watch your pulse oximetry (the finger oxygen reader) at home and please return if this drops to 89% or less with activity as you may benefit from steroids and antivirals. Would recommend stopping hydroxychloroquine as well if you are still taking this. Would also recommend tylenol around the clock (650 4x per day or 975 mg 3x per day) to help with symptoms. Discharge orders & Medications Prescriptions: Continued atorvastatin [Lipitor] 40 mg Tablet 40 mg PO DAILY RF: 0 metformin 500 mg Tablet 500 mg PO BID RF: 0 warfarin 5 mg Tablet 5 mg PO DAILY RF: 0 aspirin 81 mg Tablet 81 mg PO DAILY RF: 0 losartan [Cozaar] 100 mg Tablet 100 mg PO DAILY RF: 0 Discontinued hydrochlorothiazide 25 mg Tablet 25 mg PO DAILY RF: 0 hydroxychloroquine 200 mg Tablet RF: 0 Follow up/Referrals: Sree Carnes DO [Primary Care Provider] - Diet/Activity/Treatments Diet: Diet as Tolerated and Carb-consistent/Diabetic Activity: As tolerated Discharge Data Primary Care Provider: Sree Carnes Attending Provider: Mitul Campbell MIPS - Admit I confirm the patient?s Advance Care Plan is present, Code status is documented, Surrogate decision maker is in patient?s record [If Yes, STOP here]: Yes MIPS - DC The patient has current or prior documentation of left ventricular ejection fraction (LVEF) less than 40%, or moderate or severely depressed left ventricular systolic function.: No
== END 2021-01-08 19:00 | disposition home or self-care (01) ==
LOC: ED 01-08 07:34 → AC 01-08 08:20
PROVIDERS: Admitting Provider Internal Medicine; Emergency Provider Emergency Medicine; PCP Family Medicine; Referring Provider Emergency Medicine; Visit Provider Internal Medicine
DX: U07.1 COVID-19 (principal); J12.82 Pneumonia due to coronavirus disease 2019; E87.1 Hypo-osmolality and hyponatremia; R53.1 Weakness; R19.7 Diarrhea, unspecified; E11.9 Type 2 diabetes mellitus without complications; I10 Essential (primary) hypertension; I25.10 Atherosclerotic heart disease of native coronary artery without angina pectoris; I48.91 Unspecified atrial fibrillation; Z79.01 Long term (current) use of anticoagulants; Z79.84 Long term (current) use of oral hypoglycemic drugs
CPT/HCPCS: 36415; 71045; 80048; 80053; 81001; 82550; 82728; 82962; 83605; 83690; 83880; 84145; 84300; 84484; 85025; 85379; 85610; 86140; 87040; 87635; 93005; 96360; 96361; 96372; 99285; C9803; G0378; J1815

== ENCOUNTER 2021-01-15 18:58 | Emergency (ER) | payer MEDICARE, OTHER, SELFPAY ==
[2021-01-08 08:53] VITALS: BMI 25.4
[2021-01-15] VITALS (20 sets, daily range): BP systolic 172–223; BP diastolic 76–99; PULSE 52–96; RESP 10–18; TEMP 36.4; O2SAT 93–98; BMI 25.8
--- NOTE | 2021-01-15 19:18 | DI.RAD.S_ITS ---
PROCEDURE: XR CHEST 1V INDICATIONS: chest pain TECHNIQUE: One view of the chest was acquired. COMPARISON: [facility], CR, XR CHEST 1V, 01/07/2021, 23:16. FINDINGS: Surgical changes and devices: None. Lungs and pleura: Bibasilar airspace opacities slightly increased in size compared January 07, 2021. No pleural effusions or pneumothorax. Mediastinum: Mediastinal contours appear normal. Heart size is normal. Bones and chest wall: No suspicious bony lesions. Overlying soft tissues appear unremarkable. IMPRESSION: Bibasilar airspace opacities increased in size compared January 07, 2021 suspicious for progression of pneumonia. Dictated by: Lainey Duron MD, PhD on 01/15/2021 at 19:59 Approved by: Lainey Duron MD, PhD on 01/15/2021 at 20:00
[2021-01-15 19:37] LABS: Hematocrit 36.6 % (41-53); Hemoglobin 12.9 g/dL (13.5-17.5); Mean Corpuscular HGB Conc 35.3 % (30-36); Mean Corpuscular Hemoglobin 31.3 PG (26-34); Mean Corpuscular Volume 88.7 fL (80-100); Platelet Count 375 X10^3/uL (150-400); Red Blood Cell Count 4.13 X10^6/uL (4.5-5.9); Red Cell Distribution Width 14.8 % (11.6-14.8); White Blood Cell Count 6.9 X10^3/uL (4.5-11.0)
--- NOTE | 2021-01-15 19:39 | ED_ITS ---
HPI - General Adult General Chief complaint: Hypertension Stated complaint: HIGH BLOOD PRESSURE Time Seen by Provider: 01/15/21 19:18 Source: patient Mode of arrival: Ambulatory History of Present Illness HPI narrative: 80-year-old male nonsmoker with history hypertension, hyperlipidemia, coronary artery disease, diabetes presents with a chief complaint of elevating blood pressures with significant frontal headache. He states that he had been slowly developing his headache over the course of the day and he checked his blood pressure and found it to be quite elevated. He denies any blurred vision, trouble speech nor nausea or vomiting. He denies chest pain or shortness of breath. He denies abdominal pain or focal findings such as numbness, tingling or weakness. He denies any neck pain. He has had no recent injuries or falls. He denies any fever or chills. He was admitted with hyponatremia and COVID pneumonia a few weeks ago and upon discharge had his hydrochlorothiazide stopped as it was thought to be a likely contributor to his sodium levels. He has been taking only the losartan 100 mg daily at home Related Data Home Medications Medication Instructions Recorded Confirmed aspirin 81 mg tablet 81 mg PO DAILY 01/07/21 01/15/21 atorvastatin 40 mg tablet (Lipitor) 40 mg PO DAILY 01/07/21 01/15/21 losartan 100 mg tablet (Cozaar) 100 mg PO DAILY 01/07/21 01/15/21 metformin 500 mg tablet 500 mg PO BID 01/07/21 01/15/21 warfarin 5 mg tablet 5 mg PO DAILY 01/07/21 01/15/21 hydrochlorothiazide 25 mg tablet 25 mg PO DAILY 01/15/21 01/15/21 Previous Rx's Medication Instructions Recorded amlodipine 5 mg tablet 5 mg PO DAILY #30 tab 01/16/21 Allergies Allergy/AdvReac Type Severity Reaction Status Date / Time lisinopril AdvReac Cough Verified 01/15/21 19:06 Review of Systems Review of Systems Narrative: GENERAL: Denies chills, fatigue, malaise, fever, sweats. HEENT: Denies sinus pain, ear pain, sore throat, difficulty swallowing, dizziness. RESPIRATORY: Denies dyspnea, cough, wheezing, hemoptysis, sputum. CARDIOVASCULAR: Denies chest pain, palpitations, orthopnea, edema, GASTROINTESTINAL: Denies nausea, vomiting, abdominal pain, diarrhea, constipation, melena. : Denies dysuria, frequency, incontinence, hematuria, urinary retention. MUSCULOSKELETAL: denies weakness, joint pain, or bony pain SKIN: Denies rash, skin lesions, or other NEUROLOGIC: See HPI PSYCHIATRIC: No concerning psychosocial issues. 12 point review of systems is negative except for those stated above Patient History Medical History Afib CAD (coronary artery disease) HTN (hypertension) Type 2 diabetes mellitus Surgical History Hx of heart artery stent Social History household members: significant other Smoking Status: Never smoker Smoking Status: Never smoker alcohol intake frequency: 0-2 drinks per day Substance Use Type: does not use Exam Narrative Exam Narrative: GENERAL: [80] year old patient appears stated age. Well- developed patient, in mild distress. HEAD: Atraumatic. Normocephalic. EYES: Pupils equal round and reactive. Extraocular motions intact. No scleral icterus. No injection or drainage. ENT: Nose without bleeding, purulent drainage. Throat without erythema, tonsillar hypertrophy or exudate. Airway patent. NECK: Trachea midline. Non tender CARDIOVASCULAR: Regular rate and rhythm without murmurs, gallops, or rubs. RESPIRATORY: Clear to auscultation. Breath sounds equal bilaterally. No wheezes, rales, or rhonchi. GASTROINTESTINAL: Abdomen soft, non-tender, nondistended. EXTREMITIES: No edema or joint tenderness. BACK: Nontender without deformity or crepitance. No flank tenderness. NEURO: AOx3. SKIN: No rash or erythema of visible areas Initial Vital Signs Initial Vital Signs: Vital Signs Temperature 97.6 F 01/15/21 19:03 Pulse Rate 67 01/15/21 19:03 Respiratory Rate 17 01/15/21 19:03 Blood Pressure 223/99 H 01/15/21 19:03 Pulse Oximetry 98 01/15/21 19:03 Course Course Course Narrative: On arrival blood pressure was noted to be over 200, over the next 30 minutes, after labs initiated and patient allowed to rest in a dark room his blood pressure dipped into the 150s. He became completely symptom-free in the aftermath of of blood pressure resolution. Over the course of the visit patient had a slow upward trend of his blood pressure and wants it cut above the 180s again he developed of mild headache. At this point time he was given some hydralazine which causes pressure to deploy the 170s at which point his symptoms followed it. 0033 - BP back up to 190s, BRASHER returns. Head CT ordered. First dose Amlodipine ordered. 0130 - Head CT unremarkable. Repeat BP in the 190s. Patient still has BRASHER. COVID admit ordered, Nicardipine drip ordered. 0600 - Nicardipine has been off for over an hour. BP holding in the 120s-130s. Patient resting and symtpom free Orders Ordered: Discontinued Medications Amlodipine Besylate (Amlodipine 5 Mg Tablet) 5 mg PO NOW ONE Stop: 01/16/21 00:33 Last Admin: 01/16/21 00:43 Dose: 5 mg Documented by: MARCELLUS Hydralazine HCl (Hydralazine 20 Mg/Ml Vial) 5 mg IV NOW ONE Stop: 01/15/21 22:26 Last Admin: 01/15/21 22:56 Dose: 5 mg Documented by: MARCELLUS Nicardipine HCl 25 mg/ Sodium (Chloride) 250 mls @ 50 mls/hr IV TITRATE KECIA; Protocol Last Titration: 01/16/21 06:44 Dose: 0 mg/hr, 0 mls/hr Documented by: Titration: 01/16/21 05:02 Dose: 0 mg/hr, 0 mls/hr Documented by: Titration: 01/16/21 04:35 Dose: 3 mg/hr, 30 mls/hr Documented by: Admin: 01/16/21 03:28 Dose: 5 mg/hr, 50 mls/hr Documented by: MARCELLUS Vital Signs Vital signs: Vital Signs - 8 hr 01/15/21 22:56 01/15/21 23:00 01/15/21 23:15 Pulse Rate 54 L 52 L 55 L Respiratory Rate 15 13 Blood Pressure 174/76 H 173/79 H 177/79 H Pulse Oximetry 96 96 01/15/21 23:26 01/15/21 23:30 01/15/21 23:46 Pulse Rate 58 L 61 57 L Respiratory Rate 13 13 12 Blood Pressure 183/81 H 172/81 H 186/80 H Pulse Oximetry 96 97 96 01/16/21 00:00 01/16/21 00:15 01/16/21 00:30 Pulse Rate 54 L 55 L 59 L Respiratory Rate 9 L 10 L 16 Blood Pressure 178/79 H 176/81 H 190/90 H Pulse Oximetry 96 95 97 01/16/21 00:54 01/16/21 01:00 01/16/21 01:15 Pulse Rate 75 62 60 Respiratory Rate 21 10 L 11 L Blood Pressure 170/110 H 185/89 H 203/88 H Pulse Oximetry 96 96 96 01/16/21 01:30 01/16/21 01:44 01/16/21 01:46 Pulse Rate 66 63 60 Respiratory Rate 15 11 L 10 L Blood Pressure 185/91 H 205/85 H 191/89 H Pulse Oximetry 97 96 96 01/16/21 02:01 01/16/21 02:03 01/16/21 02:30 Pulse Rate 78 71 61 Respiratory Rate 15 10 L Blood Pressure 205/88 H Pulse Oximetry 100 96 96 01/16/21 02:31 01/16/21 03:00 01/16/21 03:29 Pulse Rate 60 62 63 Respiratory Rate 11 L 12 20 Blood Pressure 189/83 H 174/77 H 190/87 H Pulse Oximetry 96 94 96 01/16/21 03:30 01/16/21 03:31 01/16/21 03:45 Pulse Rate 64 67 68 Respiratory Rate 20 17 16 Blood Pressure 163/77 H 174/79 H Pulse Oximetry 96 97 93 01/16/21 04:00 01/16/21 04:15 01/16/21 04:30 Pulse Rate 65 70 70 Respiratory Rate 10 L 12 13 Blood Pressure 146/67 H 145/70 H 134/67 Pulse Oximetry 93 94 93 01/16/21 04:45 01/16/21 05:00 01/16/21 05:15 Pulse Rate 70 69 64 Respiratory Rate 20 13 7 L Blood Pressure 126/65 124/60 134/68 Pulse Oximetry 91 93 95 01/16/21 05:30 01/16/21 05:45 01/16/21 06:00 Pulse Rate 70 64 67 Respiratory Rate 12 6 L 7 L Blood Pressure 136/64 141/65 H Pulse Oximetry 92 95 93 01/16/21 06:01 01/16/21 06:30 Pulse Rate 64 66 Respiratory Rate 7 L 12 Blood Pressure 126/67 139/65 Pulse Oximetry 95 95 Medical Decision Making Lab Data Result diagrams: 01/15/21 19:20 01/15/21 19:20 Labs: Lab Results 01/15/21 01/15/21 01/15/21 Range/Units 19:20 19:20 19:31 WBC 6.9 (4.5-11.0) X10^3/uL RBC 4.13 L (4.5-5.9) X10^6/uL Hgb 12.9 L (13.5-17.5) g/dL Hct 36.6 L (41-53) % MCV 88.7 (80-100) fL MCH 31.3 (26-34) PG MCHC 35.3 (30-36) % RDW 14.8 (11.6-14.8) % Plt Count 375 (150-400) X10^3/uL Neut % (Auto) Not Reportable Lymph % (Auto) Not Reportable Wake % (Auto) Not Reportable Eos % (Auto) Not Reportable Baso % (Auto) Not Reportable Lymph # (Auto) Not Reportable Wake # (Auto) Not Reportable Baso # (Auto) Not Reportable Total Counted 100 Seg Neutrophils % 69.0 (38-70) % Lymphocytes % (Manual) 20.0 L (25-45) % Monocytes % (Manual) 9.0 (2-11) % Eosinophils % (Manual) 2.0 (2-4) % Neutrophils # (Manual) 4761 (0151-5466) /uL Platelet Estimate Adequate on smear RBC Morphology Normal morphology Sodium 137 (137-145) mmol/L Potassium 4.1 (3.4-5.1) mmol/L Chloride 101 (98-107) mmol/L Carbon Dioxide 27 (22-32) mmol/L BUN 18 (9-20) mg/dL Creatinine 0.84 (0.66-1.25) mg/dL Estimated GFR > 60.0 (>60) mL/min BUN/Creatinine Ratio 21.4 (6-22) Glucose 117 H (80-110) mg/dL Calcium 10.2 (8.4-10.2) mg/dL Magnesium 1.7 (1.6-2.3) mg/dL Total Bilirubin 1.5 H (0.2-1.3) mg/dL AST 64 H (17-59) IU/L ALT 68 H (<50) IU/L Alkaline Phosphatase 104 (38-126) U/L Total Creatine Kinase 49 L (55-170) U/L CK-MB (CK-2) TNP CK-MB (CK-2) Rel Index TNP Troponin I < 0.012 (0.01-0.034) ng/mL Total Protein 7.5 (6.3-8.2) g/dL Albumin 4.4 (3.5-5.0) g/dL Globulin 3.1 (1.7-4.1) g/dL Albumin/Globulin Ratio 1.4 (1.0-2.8) Lipase 209 D (23-300) U/L SARS-CoV-2 (PCR) Negative (Negative) 01/16/21 Range/Units 03:20 WBC (4.5-11.0) X10^3/uL RBC (4.5-5.9) X10^6/uL Hgb (13.5-17.5) g/dL Hct (41-53) % MCV (80-100) fL MCH (26-34) PG MCHC (30-36) % RDW (11.6-14.8) % Plt Count (150-400) X10^3/uL Neut % (Auto) Lymph % (Auto) Wake % (Auto) Eos % (Auto) Baso % (Auto) Lymph # (Auto) Wake # (Auto) Baso # (Auto) Total Counted Seg Neutrophils % (38-70) % Lymphocytes % (Manual) (25-45) % Monocytes % (Manual) (2-11) % Eosinophils % (Manual) (2-4) % Neutrophils # (Manual) ([id number]) /uL Platelet Estimate RBC Morphology Sodium (137-145) mmol/L Potassium (3.4-5.1) mmol/L Chloride (98-107) mmol/L Carbon Dioxide (22-32) mmol/L BUN (9-20) mg/dL Creatinine (0.66-1.25) mg/dL Estimated GFR (>60) mL/min BUN/Creatinine Ratio (6-22) Glucose (80-110) mg/dL Calcium (8.4-10.2) mg/dL Magnesium (1.6-2.3) mg/dL Total Bilirubin (0.2-1.3) mg/dL AST (17-59) IU/L ALT (<50) IU/L Alkaline Phosphatase (38-126) U/L Total Creatine Kinase (55-170) U/L CK-MB (CK-2) CK-MB (CK-2) Rel Index Troponin I (0.01-0.034) ng/mL Total Protein (6.3-8.2) g/dL Albumin (3.5-5.0) g/dL Globulin (1.7-4.1) g/dL Albumin/Globulin Ratio (1.0-2.8) Lipase (23-300) U/L SARS-CoV-2 (PCR) Positive H (Negative) Discharge Plan Departure Patient Disposition: Home Clinical Impression: Hypertension Qualifiers: Hypertension type: primary hypertension Qualified Code(s): I10 - Essential (primary) hypertension Instructions: DI for High Blood Pressure Activity Restrictions/Additional Instructions: *You have been diagnosed with [hypertension with associated mild headache. Physical exam, labs are very reassuring.] *What to do: *Please continue to take your regular medications as directed other than the HCTZ which you should stop [x ] New medication prescriptions sent to your pharmacy: [[facility]] [ ] New medication written as a paper prescription [ ] No new medications given *Please follow up with your primary care provider in 2-3 days, call for an appointment. Let them know you were seen in the Emergency Department and that we ask that you be seen in follow up. We will electronically transmit a record of today's note if your PCP is in our system *If you do not have a primary care provider please contact the [facility] Resource line at [phone]. They will ask some questions about your medical history and help get you set up with a doctor in the community. *Return to Emergency Department if you should have any new, worsening or concerning symptoms, such as [fever greater than 101 F, shaking chills, worsening pain, persistent vomiting or other bothersome symptoms] Prescriptions: New amlodipine 5 mg tablet 5 mg PO DAILY Qty: 30 RF: 0 No Action hydrochlorothiazide 25 mg tablet 25 mg PO DAILY RF: 0 atorvastatin [Lipitor] 40 mg Tablet 40 mg PO DAILY RF: 0 metformin 500 mg Tablet 500 mg PO BID RF: 0 warfarin 5 mg Tablet 5 mg PO DAILY RF: 0 aspirin 81 mg Tablet 81 mg PO DAILY RF: 0 losartan [Cozaar] 100 mg Tablet 100 mg PO DAILY RF: 0 Referrals: Sree Carnes DO [Primary Care Provider] -
[2021-01-15 19:45] LABS: Alanine Aminotransferase 68 IU/L (<50); Albumin 4.4 g/dL (3.5-5.0); Albumin Globulin Ratio 1.4 (1.0-2.8); Alkaline Phosphatase 104 U/L (38-126); Aspartate Aminotransferase 64 IU/L (17-59); BUN Creatinine Ratio 21.4 (6-22); Bilirubin Total 1.5 mg/dL (0.2-1.3); Blood Urea Nitrogen 18 mg/dL (9-20); Calcium 10.2 mg/dL (8.4-10.2); Carbon Dioxide 27 mmol/L (22-32); Chloride 101 mmol/L (98-107); Creatine Kinase 49 U/L (55-170); Estimated Glomerular Filt Rate > 60.0 mL/min (>60); Globulin 3.1 g/dL (1.7-4.1); Glucose 117 mg/dL (80-110); HEMOLYSIS < 15 (0-50); Lipase 209 U/L (23-300); Magnesium 1.7 mg/dL (1.6-2.3); Potassium 4.1 mmol/L (3.4-5.1); Sodium 137 mmol/L (137-145); Total Protein 7.5 g/dL (6.3-8.2)
[2021-01-15 19:46] LABS: Add Manual Diff / Slide Review YES
[2021-01-15 19:56] LABS: Troponin I < 0.012 ng/mL (0.01-0.034)
[2021-01-15 20:22] LABS: Neutrophils Absolute Manual 4761 /uL (3000-5900); Total Cells Counted 100
[2021-01-15 20:23] LABS: Platelet Estimate Adequate on smear; RBC Morphology Normal Morphology
[2021-01-15 20:26] LABS: COVID19 -Nasal RAPID Negative (Negative)
[2021-01-15] MEDS: HYDRALAZINE 20 MG/ML VIAL 5 MG IV (22:56)
[2021-01-16] VITALS (29 sets, daily range): BP systolic 124–205; BP diastolic 60–110; PULSE 54–78; RESP 6–21; O2SAT 91–100
--- NOTE | 2021-01-16 00:32 | DI.CT.S_ITS ---
PROCEDURE: CT HEAD/BRAIN WO CON INDICATIONS: headaches, high blood pressure, anticoagulation TECHNIQUE: Noncontrast 4.5 mm thick angled axial sections acquired from the foramen magnum to the vertex, with coronal and sagittal reformats. For radiation dose reduction, the following was used: automated exposure control, adjustment of mA and/or kV according to patient size. COMPARISON: None. FINDINGS: Image quality: Excellent. CSF spaces: Basal cisterns are patent. No extra-axial fluid collections. The ventricles are symmetric in size and shape. Brain: No intracranial bleeds or masses. There is cerebral volume loss for age, with resultant ventricular and sulcal prominence. There are periventricular and deep white matter chronic small vessel ischemic changes. There is intracranial internal carotid artery and vertebral artery atherosclerosis. Skull and face: Calvarium and visualized facial bones appear intact, without suspicious lesions. Sinuses: Visualized sinuses and mastoids are clear. IMPRESSION: No acute intracranial disease process. Dictated by: Lainey Duron MD, PhD on 01/16/2021 at 7:08 Approved by: Lainey Duron MD, PhD on 01/16/2021 at 7:11
[2021-01-16] MEDS: AMLODIPINE 5 MG TABLET PO (00:43)
[2021-01-16] MEDS: NICARDIPINE 25 MG in SODIUM CHLORIDE 0.9% 240 ML 50 ML IV (03:28)
[2021-01-16 04:39] LABS: COVID19 - ADMIT (NP swab/PCR) POSITIVE (Negative)
== END 2021-01-16 06:57 | disposition home or self-care (01) ==
PROVIDERS: Emergency Provider Emergency Medicine; PCP Family Medicine
DX: I10 Essential (primary) hypertension (principal); R51.9 Headache, unspecified; U07.1 COVID-19
CPT/HCPCS: 36415; 70450; 71045; 80053; 82550; 83690; 83735; 84484; 85007; 85025; 87635; 93005; 93010; 96365; 96366; 96375; 99284; C9803; J0360

== ENCOUNTER → 2022-01-03 14:21 | Outpatient (CLI) | payer MEDICARE, OTHER, SELFPAY ==
[2021-01-08 08:53] VITALS: BMI 25.4
--- NOTE | 2022-01-03 14:23 | DI.RAD.S_ITS ---
PROCEDURE: XR HIP W PEL IF DONE NAT MIN 4V INDICATIONS: LEFT HIP PAIN TECHNIQUE: 2 view(s) of the hip acquired. COMPARISON: [facility] [place], CR, XR PELVIS WITH LATERAL HIP LEFT, 06/28/2020, 10:09. [facility] [place], CR, XR PELVIS WITH LATERAL HIP LEFT, 06/19/2018, 13:27. [facility] [place], CR, XR PELVIS WITH LATERAL HIP LEFT, 04/10/2021, 11:39. FINDINGS: Bones: Patient is status post left hip arthroplasty, with hardware components in expected positions. The hip joint appears congruent. The visualized bony structures appear intact. Osseous hypertrophy and mild joint space narrowing noted in the right hip. Soft tissues: Overlying postoperative changes are noted. No suspicious soft tissue densities. IMPRESSION: Expected postsurgical change for left hip arthroplasty. Left hip arthroplasty is stable in appearance compared to prior exams. Moderate right hip osteoarthritis. Dictated by: Lainey Duron MD, PhD on 01/03/2022 at 17:03 Approved by: Lainey Duron MD, PhD on 01/03/2022 at 17:05
== END ==
PROVIDERS: PCP Family Medicine; Referring Provider Physical Medicine & Rehabilitation; Visit Provider Physical Medicine & Rehabilitation
DX: M16.11 Unilateral primary osteoarthritis, right hip (principal); M25.552 Pain in left hip; Z96.642 Presence of left artificial hip joint
CPT/HCPCS: 73522

== ENCOUNTER → 2022-02-20 08:17 | Outpatient (CLI) | payer MEDICARE, OTHER, SELFPAY ==
[2022-01-23 15:57] VITALS: BMI 25.4
--- NOTE | 2022-02-20 08:18 | DI.NM.S_ITS ---
PROCEDURE: NM BONE 3 PHASE RADIOPHARMACEUTICAL: 19.8 mCi Tc-99m MDP IV. INDICATIONS: left hip arthroplasty loosening/ wear TECHNIQUE: Multiple bone scintigrams were obtained after intravenous injection of Tc-99m MDP, including flow, blood pool, and delayed images centered to the region of interest. COMPARISON: [facility], CT, CT HIP LEFT WITHOUT CON, 02/20/2022, 8:31. [facility], CR, XR HIP W PEL IF DONE NAT 3TO4V, 01/03/2022, 14:45. FINDINGS: A triple phase bone scan was obtained, centered to the pelvis and hips. There is left hip arthroplasty. The flow and blood pool images demonstrate subtle increased vascular activity around the left hip. Delayed images demonstrate increased activity around the proximal femur adjacent the femoral stem of the prosthesis, more pronounced laterally. Increased periarticular activity in the right hip is compatible with degenerative/arthritic change. IMPRESSION: There is increased vascular flow, blood pool and delayed activity around the right femur adjacent to the femoral stem of the hip prosthesis, concerning for prosthesis loosening or infection. Dictated by: Ai Morley M.D. on 02/20/2022 at 15:53 Approved by: Ai Morley M.D. on 02/20/2022 at 15:57
--- NOTE | 2022-02-20 08:18 | DI.CT.S_ITS ---
PROCEDURE: CT HIP LEFT WITHOUT CON INDICATIONS: left hip arthroplasty loosening TECHNIQUE: Noncontrast 3 mm axial sections acquired through the bony pelvis. Additional 3 mm axial sections acquired through the symptomatic hip joint, with coronal and sagittal reformats. COMPARISON: [facility], CR, XR PELVIS WITH LATERAL HIP LEFT, 04/10/2021, 11:39. [facility], CR, XR HIP W PEL IF DONE NAT 3TO4V, 01/03/2022, 14:45. FINDINGS: Image quality: Excellent. Bones: Postsurgical changes are seen from a left hip arthroplasty. There is osteolysis as well as osseous expansion and remodeling adjacent to the arthroplasty within the acetabulum and proximal femur. The femoral head component is located mildly eccentrically within the metallic acetabular cup. Intermediate density material is seen surrounding the hip. No acute fracture or dislocation. Degenerative changes are seen in the lumbar spine. Soft tissues: The musculature surrounding the hips is normal in bulk. An intramuscular lipoma is seen in the proximal vastus intermedius muscle measuring 3.6 x 2.1 x 5.0 cm. Small fat containing inguinal hernias bilaterally. Multiple diverticula are seen in the colon without signs of acute diverticulitis. The prostate is enlarged. IMPRESSION: Osteolysis and chronic osseous expansion and remodeling within the left acetabulum and femur surrounding the hip arthroplasty. The femoral head component is located eccentrically within the acetabular cup, which is suggestive of liner wear. 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 Dictated by: Buzz Benavides M.D. on 02/20/2022 at 10:26 Approved by: Buzz Benavides M.D. on 02/20/2022 at 10:51
== END ==
PROVIDERS: PCP Family Medicine; Referring Provider Physical Medicine & Rehabilitation; Visit Provider Physical Medicine & Rehabilitation
DX: M25.552 Pain in left hip (principal); T84.031A Mechanical loosening of internal left hip prosthetic joint, initial encounter; M89.562 Osteolysis, left lower leg; G89.29 Other chronic pain; K57.90 Diverticulosis of intestine, part unspecified, without perforation or abscess without bleeding; K40.20 Bilateral inguinal hernia, without obstruction or gangrene, not specified as recurrent; N40.0 Benign prostatic hyperplasia without lower urinary tract symptoms
CPT/HCPCS: 73700; 78315; A9503

== ENCOUNTER → 2022-03-05 08:19 | Outpatient (CLI) | payer MEDICARE, OTHER, SELFPAY ==
[2022-01-23 15:57] VITALS: BMI 25.4
[2022-03-05 10:08] LABS: COVID19 -Nasal RAPID Negative (Negative)
--- NOTE | 2022-03-05 17:43 | DI.NM.S_ITS ---
DATE OF SERVICE: 03/05/2022 PROCEDURE: Pharmacological perfusion study. INDICATION: Chronic AFib, coronary artery disease with history of LAD and RCA stent in the past, hypertension, hyperlipidemia, DM. RADIOPHARMACEUTICAL: 26.4 millicurie technetium-99m Myoview IV was injected at stress and 11.6 millicurie technetium-99m Myoview IV was injected at rest. CARDIAC STRESS: The patient underwent IV Lexiscan perfusion study under the supervision of an supervision of an attending staff using standard intravenous Lexiscan as per protocol. Baseline rhythm was AFib with intermittent PVCs. During stress, there were some nonspecific ST-T changes and frequent premature ventricular contractions, including ventricular couplets, without any ventricular tachycardia. The patient had minimal dyspnea. No chest discomfort. RAW DATA: There is increased subdiaphragmatic activity. The patient's weight is 187 pounds. GATED STUDY: Stress LV ejection fraction 81 percent without any obvious wall motion abnormalities. Resting end-diastolic volume 72 mL. TID ratio 1.0, which is within normal limits. Lung/heart ratio 0.32, which is within normal limits. MYOCARDIAL PERFUSION SCAN: S stress supine, resting supine and stress prone images were compared to each other. Stress supine and resting supine images revealed a small to moderate size, mildly decreased perfusion of inferior wall extending into the inferoapex, which got completely resolved during stress prone images, suggestive of diaphragmatic tissue attenuation artifact. No convincing ischemia or infarction. CONCLUSION: This is a normal myocardial perfusion study with evidence of diaphragmatic tissue attenuation artifact, which got resolved during stress prone images. Summed rest score and summed stress score is 0. Preserved left ventricular function with left ventricular ejection fraction 81 percent without any obvious wall motion abnormalities. Normal transient ischemic dilatation and lung heart ratio. Overall, low-risk myocardial perfusion scan. The patient has chronic atrial fibrillation. Franco Rodríguez - PATY/megan/hudson doc#: [id number]/job#: [id number] dd: 03/05/2022 16:47:00 dt: 03/05/2022 17:26:00 DICTATING MD/COPIES TO: Isaut Coughlin MD COPIES MNE: DEVON;
== END ==
PROVIDERS: PCP Family Medicine; Referring Provider Internal Medicine Cardiovascular Disease; Visit Provider Internal Medicine Cardiovascular Disease
DX: I48.20 Chronic atrial fibrillation, unspecified (principal); I50.32 Chronic diastolic (congestive) heart failure; I11.0 Hypertensive heart disease with heart failure; E78.5 Hyperlipidemia, unspecified; I25.10 Atherosclerotic heart disease of native coronary artery without angina pectoris; I49.3 Ventricular premature depolarization; D64.9 Anemia, unspecified; R73.09 Other abnormal glucose; Z20.822 Contact with and (suspected) exposure to COVID-19; Z95.5 Presence of coronary angioplasty implant and graft
CPT/HCPCS: 78452; 87635; 93017; A9502; J2785

== ENCOUNTER → 2022-07-11 16:14 | Outpatient (CLI) | payer MEDICARE, OTHER, SELFPAY ==
[2022-01-23 15:57] VITALS: BMI 25.4
--- NOTE | 2022-07-11 16:16 | DI.MRI.S_ITS ---
PROCEDURE: MR PELIS WO/W CON INDICATIONS: Prostate CA TECHNIQUE: Coronal HASTE, axial T1 FSE with fat saturation, 3-plane nonbreath-hold T2 FSE. After the administration of contrast, dynamic axial, delayed axial and coronal VIBE or 2-D FLASH with fat saturation through the pelvis. Optional diffusion weighted imaging and ADC may be performed. COMPARISON: None. FINDINGS: Image quality: Somewhat limited evaluation especially on DWI series due to metallic artifact from the left hip arthroplasty. Prostate: 5.7 x 4.1 x 4.6 cm. Estimated volume is 56 cc. Transitional zone heterogenous nodules are present, either well encapsulated or mostly encapsulated, compatible with PI-RADS 1 or 2 likely BPH nodules. Mildly T2 hypointense heterogenous striated appearance of the peripheral zone is commonly seen with current or prior prostatitis, PI-RADS 2. These findings can obscure small cancers. There is a suspected extruded BPH nodule in the right peripheral zone mid gland. Right apex region (4/16) measuring 12 x 10 mm (5/10) DWI score 3. T2 score 3. DCE positive. PI-RADS 3. Most likely differential consideration is another extruded BPH nodule. Relative atrophy and signal abnormality, possibly due to obstruction of the left seminal vesicles. There is intrinsic T1 signal. Genitourinary system: Trabeculated bladder is not well evaluated on imaging, most commonly from chronic obstruction. No dilation of the distal ureters. Bowel and peritoneum: No pathologic ascites or bowel obstruction. Nodes and vessels: No aneurysm or vessel. Nonspecific pelvic lymph nodes are present, not enlarged by size criteria. Soft tissues: Small possible left fat containing inguinal hernia. Bones: No acute or suspicious osseous abnormality. The left hip arthroplasty is not well evaluated on this study. IMPRESSION: Somewhat limited exam due to metallic artifact in the pelvis from the left hip arthroplasty. Within the limits of evaluation, there is a PI-RADS 3 nodule at the right apex, a differential consideration is an extruded BPH nodule. Sequela of BPH, including another extruded nodule in the right peripheral zone mid gland. Other findings as above. Dictated by: Victor Manuel Mccracken M.D. on 07/12/2022 at 8:32 Approved by: Victor Manuel Mccracken M.D. on 07/12/2022 at 8:43
== END ==
PROVIDERS: PCP Family Medicine; Referring Provider Specialist; Visit Provider Specialist
DX: N40.0 Benign prostatic hyperplasia without lower urinary tract symptoms (principal); R97.20 Elevated prostate specific antigen [PSA]; Z96.642 Presence of left artificial hip joint
CPT/HCPCS: 72197; A9579

== ENCOUNTER 2022-10-25 10:23 | Emergency (ER) | payer MEDICARE, OTHER, SELFPAY ==
[2022-01-23 15:57] VITALS: BMI 25.4
[2022-10-25 10:23] VITALS: BP 212/93; PULSE 53; RESP 15; TEMP 36.4; O2SAT 98
[2022-10-25 10:34] VITALS: BP 202/93
--- NOTE | 2022-10-25 10:36 | PC.NURSE ---
Pt used afrin prior to arrival,right nare is not actively bleeding at triage. Dr juarez placed cotton soaked with afrin in nare,with clamp
--- NOTE | 2022-10-25 15:32 | ED.EPISTAXIS ---
HPI - Epistaxis General Chief complaint: Nasal Problem Stated complaint: Nose Bleed T-1 Time Seen by Provider: 10/25/22 10:32 Source: patient Mode of arrival: Ambulatory History of Present Illness HPI Narrative: 82-year-old male nonsmoker with history of AFib on anticoagulation presents for evaluation of a right-sided nosebleed that stopped prior to his arrival. He had an episode earlier in the week and saw his primary care provider and had success with silver nitrate. He developed some bleeding from his right naris again earlier today and called the office and was encouraged to use Afrin. He at applied Afrin and applied pressure for about 15 minutes and bleeding stopped prior to his arrival. He denies any trauma or injury. He denies any sensation that he is swallowing blood. He denies systemic complaints such as dizziness, weakness or lightheadedness. He has no chest pain or shortness of breath. Related Data Home Medications Medication Instructions Recorded Confirmed aspirin 81 mg tablet 81 mg PO DAILY 01/07/21 07/23/22 losartan 100 mg tablet (Cozaar) 100 mg PO DAILY 01/07/21 07/23/22 hydrochlorothiazide 25 mg tablet 25 mg PO DAILY 01/15/21 07/23/22 ascorbic acid (vitamin C) 1,000 mg 1 g PO Q6H 01/23/22 07/23/22 capsule levothyroxine 50 mcg tablet 50 mcg PO DAILY 01/23/22 07/23/22 (Synthroid) vitamin B complex (B 1 tab PO DAILY 01/23/22 07/23/22 Complex-Vitamin B12 tablet) cholecalciferol (vitamin D3) 50 50 mcg PO DAILY 05/28/22 07/23/22 mcg (2,000 unit) chewable tablet coenzyme [id number] E 100 mg-100 cap PO 05/28/22 07/23/22 unit capsule nitroglycerin 0.4 mg sublingual 0.4 mg sublingual Q5-15M PRN 05/28/22 07/23/22 tablet quercetin 500 mg capsule mg PO 05/28/22 07/23/22 rosuvastatin 5 mg tablet 5 mg PO DAILY 05/28/22 07/23/22 zinc acetate 25 mg (zinc) capsule 25 mg PO DAILY 05/28/22 07/23/22 metformin 500 mg tablet 1,000 mg PO BID 07/23/22 07/23/22 rivaroxaban 20 mg tablet (Xarelto) 20 mg PO DAILY 07/23/22 07/23/22 Allergies Allergy/AdvReac Type Severity Reaction Status Date / Time grass pollen Allergy Intermediate HAY FEVER Verified 10/25/22 10:26 amlodipine AdvReac Intermediate FEET Verified 10/25/22 10:26 SWELLING lisinopril AdvReac Cough Verified 10/25/22 10:26 Review of Systems Review of Systems Narrative: GENERAL: Denies chills, fatigue, malaise, fever, sweats. HEENT: See HPI RESPIRATORY: Denies dyspnea, cough, wheezing, hemoptysis, sputum. CARDIOVASCULAR: Denies chest pain, palpitations, orthopnea, edema, GASTROINTESTINAL: Denies nausea, vomiting, abdominal pain, diarrhea, constipation, melena. : Denies dysuria, frequency, incontinence, hematuria, urinary retention. MUSCULOSKELETAL: denies weakness, joint pain, or bony pain SKIN: Denies rash, skin lesions, or other NEUROLOGIC: Denies weakness, headache, numbness, change in speech, confusion, seizures, incoordination. PSYCHIATRIC: No concerning psychosocial issues. 12 point review of systems is negative except for those stated above Patient History Medical History Afib BPH NOS w/o ur obs/LUTS CAD (coronary artery disease) Chronic hip pain after total replacement of left hip joint Elevated PSA Family history of prostate cancer H/O nephrolithotomy with removal of calculi HTN (hypertension) Loose total hip arthroplasty Male circumcision Type 2 diabetes mellitus Surgical History History of hip replacement Hx of heart artery stent Family History Father Cancer Mother Suicide Brother Cancer Social History marital status: number of children: 5 household members: significant other Smoking Status: Never smoker Type(s) of exercise: walking frequency: other Smoking Status: Never smoker alcohol intake frequency: 0-2 drinks per day Substance Use Type: does not use Exam Narrative Exam Narrative: GEN: AOx3 and in mild distress EYES: Pupils are equal, round, and reactive to light and accommodation. Extraoccular muscles are intact bilaterally. There is no subconjunctival hemorrhage or exudate. ENT: Dried blood in right air, visualized as far on nasal septum presumed from recent silver nitrate cautery, no active bleeding, no nasal septal hematoma CHEST: Lungs are clear to auscultation bilaterally and free of wheezes, rales, or rhonchi. Heart rate is regular rhythm, there are no murmurs, clicks, rubs, or gallops. There is no chest wall tenderness. ABD: Abdomen is soft and nontender. There is no guarding or rebound. Bowel sounds are normal in all 4 quadrants. There is no mass or organomegaly. EXT: Full painless ROM of all extremities with no loss of sensation or strength. SKIN: Warm, pink, and dry. No erythema or rash Initial Vital Signs Initial Vital Signs: Vital Signs Temperature 97.5 F L 10/25/22 10:23 Pulse Rate 53 L 10/25/22 10:23 Respiratory Rate 15 10/25/22 10:23 Blood Pressure 212/93 H 10/25/22 10:23 Pulse Oximetry 98 10/25/22 10:23 Oxygen Delivery Method Room Air 10/25/22 10:23 Course Vital Signs Vital signs: Vital Signs - 8 hr 10/25/22 10:23 10/25/22 10:34 Temperature 97.5 F L Pulse Rate 53 L Respiratory Rate 15 Blood Pressure 212/93 H 202/93 H Pulse Oximetry 98 Oxygen Delivery Method Room Air MDM - Epistaxis MDM Narrative Medical decision making narrative: [82] year old patient presents with Multiple etiologies for patient's symptoms considered including, but not limited to: [Anterior epistaxis versus posterior epistaxis versus anemia versus other] Prior Charts reviewed in our EMR Primary Historian: patient Patient with evidence of anterior bleed that had stopped prior to his arrival, there is some fresh clot in right naris but no active bleeding, no posterior pharynx bleeding. No systemic complaints. No indication for further intervention at this time. He was given cotton balls, nasal clamp and extensive return precautions including recurrence of bleeding, the sensation of blood down the back of his throat, systemic symptoms such as dizziness, weakness, lightheadedness or shortness of breath or other concerning symptoms Findings and discharge diagnosis discussed with patient/family followed by verbalization of understanding Return precautions discussed with patient/family whom verbalize understanding of diagnosis and plan Discharge Plan Departure Patient Disposition: Home Clinical Impression: Acute anterior epistaxis Instructions: DI for Nosebleed Activity Restrictions/Additional Instructions: *You have been diagnosed with [ acute anterior epistaxis ] *What to do: * do not blow your nose, stick your finger in her nose, or disturb nose for the next 24 hr. If you must sneeze please sneeze out your mouth like we talked about *Follow up with your primary care provider or ENT doctor in 2-3 days, call for an appointment. Let them know you were seen in the Emergency Department and that we ask that you be seen in follow up *Return to ER if you should have any new, worsening or concerning symptoms * if you are bleeding starts again at home please place a portion of a cotton ball in your nostril and squirt some of the Afrin you were given in your nose. Apply the nose clamp and uses a watch or o'clock to time yourself for 15 min. At the end 15 min recheck for bleeding, if you continue to bleed please repeat the process for another 15 min. If at the end of 30 min you still have bleeding you should return to the emergency department Prescriptions: No Action hydrochlorothiazide 25 mg tablet 25 mg PO DAILY aspirin 81 mg Tablet 81 mg PO DAILY losartan [Cozaar] 100 mg Tablet 100 mg PO DAILY metformin 500 mg tablet 1,000 mg PO BID levothyroxine [Synthroid] 50 mcg tablet 50 mcg PO DAILY ascorbic acid (vitamin C) 1,000 mg capsule 1 g PO Q6H vitamin B complex [B Complex-Vitamin B12] Tablet 1 tab PO DAILY rosuvastatin 5 mg tablet 5 mg PO DAILY coenzyme [id number] E 100-100 mg-unit capsule PO zinc acetate 25 mg (zinc) capsule 25 mg PO DAILY cholecalciferol (vitamin D3) 50 mcg (2,000 unit) tablet,chewable 50 mcg PO DAILY quercetin 500 mg capsule PO nitroglycerin 0.4 mg tablet, sublingual 0.4 mg sublingual Q5-15M PRN Rx Instructions: do not exceed 3 doses per episode Xarelto 20 mg tablet 20 mg PO DAILY Rx Instructions: must administer with evening meal Referrals: Fidel García MD [Physician] - Sree Carnes DO [Primary Care Provider] - Stand Alone Forms: Patient Portal/API
== END 2022-10-25 10:39 | disposition home or self-care (01) ==
PROVIDERS: Emergency Provider Emergency Medicine; PCP Family Medicine
DX: R04.0 Epistaxis (principal)
CPT/HCPCS: 99281

== ENCOUNTER 2023-07-21 10:59 | Emergency (ER) | payer MEDICARE, OTHER, SELFPAY ==
[2022-01-23 15:57] VITALS: BMI 25.4
[2023-07-21 11:09] VITALS: BP 118/59; PULSE 76; RESP 14; TEMP 36.5; O2SAT 99; BMI 25.1
--- NOTE | 2023-07-21 11:16 | DI.CT.S_ITS ---
PROCEDURE: CT HEAD/BRAIN WO CON INDICATIONS: headache after CVA TECHNIQUE: Noncontrast 4.5 mm thick angled axial sections acquired from the foramen magnum to the vertex, with coronal and sagittal reformats. For radiation dose reduction, the following was used: automated exposure control, adjustment of mA and/or kV according to patient size. COMPARISON: [facility], CT, CT HEAD/BRAIN WO CON, 01/16/2021, 0:38. FINDINGS: Image quality: Diagnostic. CSF spaces: Basal cisterns are patent. No extra-axial fluid collections. The ventricles are symmetric in size and shape. Brain: No intracranial bleeds or masses. There is cerebral volume loss for age, with resultant ventricular and sulcal prominence. There are periventricular and deep white matter chronic small vessel ischemic changes. There is a remote left STRAIGHTENER HAND territory infarction seen. There is intracranial internal carotid artery atherosclerosis. Skull and face: Calvarium and visualized facial bones appear intact, without suspicious lesions. Sinuses: Visualized sinuses and mastoids are clear. IMPRESSION: No acute intracranial hemorrhage is seen. No acute intracranial process is seen. There is a remote left STRAIGHTENER HAND territory infarction, which has taken place since the [address] Dictated by: Janes Newsome M.D. on 07/21/2023 at 10:33 Approved by: Janes Newsome M.D. on 07/21/2023 at 10:34
[2023-07-21 11:31] VITALS: BP 134/63; PULSE 76; O2SAT 94
--- NOTE | 2023-07-21 11:39 | ED.NEUROSD ---
HPI - Neuro Symptoms/Deficit General Chief Complaint: Neuro Symptoms/Deficit Stated Complaint: had stroke last week/rt eye pain, seeing lights Time Seen by Provider: 07/21/23 11:39 Source: patient, family, RN notes reviewed and old records reviewed ([facility] discharge summary) Mode of arrival: Wheelchair Limitations: no limitations History of Present Illness HPI Narrative: 82-year-old male history atrial fibrillation, hypertension, dyslipidemia, diabetes type 2 with recent stroke with MR showing a subacute infarct in the left BURGL[employer] AL[employer] SUPERINTENDENT territory and negative CT angio with discharge on 07/17/2023 from [facility]. Patient presents today with complaint of flashing lights in his right eye and left-sided headaches that are intermittent. Patient and note that he had headache initially when he had a stroke he has had right-sided weakness that has been improving but is still present. Had right facial droop right upper and lower extremity weakness and could not lift or put any weight on his right leg. Can now ambulate to the bathroom with a walker. Patient states he would pretty significant vision change with his peripheral vision decreased it has improved but is still present but noted some flashing lights in the last day or so which sort of come and go. He has not had any decreased vision since then. Has not had any worsening of his other symptoms from his prior stroke. Denies any chest pain or pressure, sometimes shortness of breath. No issues with bowel movements or urination. Was discharged home on aspirin and Xarelto. Patient's family notes that he had been stopped about 3 days prior to onset of his stroke for planned colonoscopy. He was restarted upon discharge from the hospital, was also started on iron for macrocytic anemia. Patient's home medications include aspirin daily, Xarelto, Synthroid, metformin, losartan, HCTZ and Crestor. Only reported surgery is hip replacement. No tobacco, drinks to 3 alcoholic drinks daily, no recreational drugs. Dr. Carnes is his primary care physician. They had reached out to his communications maintainer Dr. Jasso about the spots in his vision and was referred to the ED for evaluation. On Anticoagulants: Yes (xeralto) Related Data Home Medications Medication Instructions Recorded Confirmed aspirin 81 mg tablet 81 mg PO DAILY 01/07/21 05/20/23 losartan 100 mg tablet (Cozaar) 100 mg PO DAILY 01/07/21 05/20/23 hydrochlorothiazide 25 mg tablet 25 mg PO DAILY 01/15/21 05/20/23 ascorbic acid (vitamin C) 1,000 mg 1 g PO Q6H 01/23/22 05/20/23 capsule levothyroxine 50 mcg tablet 50 mcg PO DAILY 01/23/22 05/20/23 (Synthroid) vitamin B complex (B 1 tab PO DAILY 01/23/22 05/20/23 Complex-Vitamin B12 tablet) coenzyme [id number] E 100 mg-100 cap PO 05/28/22 05/20/23 unit capsule nitroglycerin 0.4 mg sublingual 0.4 mg sublingual Q5-15M PRN 05/28/22 05/20/23 tablet quercetin 500 mg capsule mg PO 05/28/22 05/20/23 rosuvastatin 5 mg tablet 5 mg PO DAILY 05/28/22 05/20/23 zinc acetate 25 mg (zinc) capsule 25 mg PO DAILY 05/28/22 05/20/23 metformin 500 mg tablet 1,000 mg PO BID 07/23/22 05/20/23 rivaroxaban 20 mg tablet (Xarelto) 20 mg PO DAILY 07/23/22 05/20/23 multivitamin 1 tab PO DAILY 12/18/22 05/20/23 cholecalciferol (vitamin D3) 50 6,000 unit PO DAILY 05/20/23 05/20/23 mcg (2,000 unit) chewable tablet Allergies Allergy/AdvReac Type Severity Reaction Status Date / Time grass pollen Allergy Intermediate HAY FEVER Verified 07/21/23 11:16 amlodipine AdvReac Intermediate FEET Verified 07/21/23 11:16 SWELLING lisinopril AdvReac Cough Verified 07/21/23 11:16 Review of Systems Review of Systems ROS Unobtainable: All systems reviewed & are unremarkable except as noted in HPI and below Hematologic/Lymphatic On Anticoagulants: Yes (xeralto) Patient History Medical History History of nephrolithiasis BPH NOS w/o ur obs/LUTS Elevated PSA Family history of prostate cancer Male circumcision H/O nephrolithotomy with removal of calculi 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 Afib HTN (hypertension) Type 2 diabetes mellitus CAD (coronary artery disease) Surgical History History of hip replacement Hx of heart artery stent Family History Father Cancer Mother Suicide Brother Cancer Social History marital status: number of children: 5 household members: significant other Smoking Status: Never smoker Type(s) of exercise: walking frequency: other Smoking Status: Never smoker alcohol intake frequency: 0-2 drinks per day Substance Use Type: does not use Exam Narrative Exam Narrative: GEN: well nourished, well appearing male, alert and oriented x 3, patient appears to be in mild distress. HEENT: Atraumatic, pupils are equal round reactive to light, extraocular movements are intact, nares are clear, TMs are clear with no fluid, there is no conjunctival pallor. Throat is clear without any exudates, erythema, tonsillar enlargement or uvular deviation, patient has a very mild right-sided facial droop with smile not appreciated with puffing of cheeks. HEART: Regular rate and rhythm without murmur, clicks, rubs. pulses are equal in upper and lower extremities LUNGS:Lungs clear to auscultation, no wheezes, rales, crackles, chest moves symmetrically ABD:bowel sounds normal, soft, non-tender, no guarding, rebound, rigidity, no masses noted, no hepatosplenomegaly :No CVA tenderness MSCL: Non-tender, no muscle atrophy, mild drift with right upper extremity. None appreciated with his leg. NEURO:CN 2-12 intact, sensation normal, mild ataxia with right [id number], normal on the left. Normal with heel-trinidad. Initial Vital Signs Initial Vital Signs: Vital Signs Temperature 97.7 F 07/21/23 11:09 Pulse Rate 76 07/21/23 11:09 Respiratory Rate 14 07/21/23 11:09 Blood Pressure 118/59 L 07/21/23 11:09 Pulse Oximetry 99 07/21/23 11:09 Oxygen Delivery Method Room Air 07/21/23 11:09 Scores NIH Stroke Scale Level of Conciousness: Alert, keenly responsive Ask month/age: Answers both questions correctly. Open/close eyes, close hand: Performs both tasks correctly Best gaze horizontal: Normal Visual davis: Partial hemianopia Facial palsy: Minor paralysis, flattened nasolabial fold, asymmetry on smiling Left arm drift: No drift for full 10 sec Right arm drift: Drifts down, not to bed Left leg drift: No drift for full 5 sec Right leg drift: No drift for full 5 sec Limb ataxia: Present in one limb Sensory on face/arms/legs: Normal, no sensory loss Best language: No aphasia, normal Dysarthria: Normal Extinction or inattention: No abnormality Total NIH Stroke scale score: 4 Course Orders Ordered: Discontinued Medications Ondansetron HCl (Ondansetron 4 Mg/2 Ml Inj) 4 mg IV NOW PRN PRN Reason: Nausea And Vomiting Ondansetron HCl (Ondansetron 4 Mg Odt) 4 mg PO NOW PRN PRN Reason: Nausea And Vomiting Vital Signs Vital signs: Vital Signs - 8 hr 07/21/23 11:09 07/21/23 11:31 07/21/23 11:31 Temperature 97.7 F Pulse Rate 76 76 Respiratory Rate 14 Blood Pressure 118/59 L 134/63 Pulse Oximetry 99 94 Oxygen Delivery Method Room Air 07/21/23 12:00 07/21/23 12:00 Temperature Pulse Rate 72 Respiratory Rate 18 Blood Pressure 132/60 Pulse Oximetry 98 Oxygen Delivery Method MDM - Neuro Symptoms/Deficit Lab Data 07/21/23 11:46 07/21/23 11:46 Labs: Lab Results 07/21/23 Range/Units 11:46 WBC 4.2 L (4.5-11.0) X10^3/uL RBC 2.93 L (4.5-5.9) X10^6/uL Hgb 9.3 L (13.5-17.5) g/dL Hct 27.7 L (41-53) % MCV 94.3 (80-100) fL MCH 31.7 (26-34) PG MCHC 33.6 (30-36) % RDW 17.0 H (11.6-14.8) % Plt Count 200 (150-400) X10^3/uL Neut % (Auto) 84.2 H (50-75) % Lymph % (Auto) 7.3 L (25-40) % Valencia % (Auto) 7.5 (3-14) % Eos % (Auto) 0.7 L (2-4) % Baso % (Auto) 0.3 (0-2) % Neut # (Auto) 3500 (5352-2702) /uL Lymph # (Auto) 300 L (6103-6957) /uL Valencia # (Auto) 300 (0-900) /uL Eos # (Auto) 0 (0-450) /uL Baso # (Auto) 0 (0-100) /uL PT 39.7 H (9.4-12.5) SECONDS INR 3.4 H (0.9-1.3) Sodium 131 L (137-145) mmol/L Potassium 3.9 (3.4-5.1) mmol/L Chloride 99 (98-107) mmol/L Carbon Dioxide 21 L (22-32) mmol/L BUN 17 (9-20) mg/dL Creatinine 1.01 (0.66-1.25) mg/dL Estimated GFR > 60 (>60) mL/min BUN/Creatinine Ratio 16.8 (6-22) Glucose 144 H (80-110) mg/dL Calcium 9.0 (8.4-10.2) mg/dL Total Bilirubin 1.7 H (0.2-1.3) mg/dL AST 32 (17-59) IU/L ALT 20 (<50) IU/L Alkaline Phosphatase 77 (38-126) U/L Total Protein 6.5 (6.3-8.2) g/dL Albumin 3.9 (3.5-5.0) g/dL Globulin 2.6 (1.7-4.1) g/dL Albumin/Globulin Ratio 1.5 (1.0-2.8) Lipase 62 (23-300) U/L Imaging Data CT scan - head: Radiologist's Impression: [address] [address] [address] Scan Report Signed Patient: Franco Rodríguez MR#: [id number] : 1940 Acct:[id number] Age/Sex: 82 / M Date of Service: 07/21/23 Loc: ED Accession Number: [id number] Procedure: CT head/brain wo con Ordering Provider: Adela Murphy D.O. PROCEDURE: CT HEAD/BRAIN WO CON INDICATIONS: headache after CVA TECHNIQUE: Noncontrast 4.5 mm thick angled axial sections acquired from the foramen magnum to the vertex, with coronal and sagittal reformats. For radiation dose reduction, the following was used: automated exposure control, adjustment of mA and/or kV according to patient size. COMPARISON: [facility], CT, CT HEAD/BRAIN WO CON, 01/16/2021, 0:38. FINDINGS: Image quality: Diagnostic. CSF spaces: Basal cisterns are patent. No extra-axial fluid collections. The ventricles are symmetric in size and shape. Brain: No intracranial bleeds or masses. There is cerebral volume loss for age, with resultant ventricular and sulcal prominence. There are periventricular and deep white matter chronic small vessel ischemic changes. There is a remote left BURGLAR ALARM SUPERINTENDENT territory infarction seen. There is intracranial internal carotid artery atherosclerosis. Skull and face: Calvarium and visualized facial bones appear intact, without suspicious lesions. Sinuses: Visualized sinuses and mastoids are clear. IMPRESSION: No acute intracranial hemorrhage is seen. No acute intracranial process is seen. There is a remote left BURGL[employer] ALARM SUPERINTENDENT territory infarction, which has taken place since the [address] Dictated by: Janes Newsome M.D. on 07/21/2023 at 10:33 Approved by: Janes Newsome M.D. on 07/21/2023 at 10:34 [facility] Narrative Medical decision making narrative: 82-year-old male presents with complaint of headaches on the left side with recent right stroke approximately a week ago and flashing lights in his right eye/vision. Patient's stroke was with significant loss of vision on the right tunnel vision or loss of peripheral vision and right-sided weakness. This has been improving overall although patient is still requiring a walker. Has been having some headaches that have been intermittent quick and then resolve. Also noted some flashing lights on the right side of his vision. Patient is back on aspirin and Xarelto, suspect based on patient's past medical history discharge summary he had his medication stopped for potential colonoscopy and several days after that had stroke with positive MRI. Patient does have risk for potential bleed so head CT without contrast was obtained which is negative for acute bleed and shows left BUR[employer] AL[employer] SUPERINTENDENT territory infarct consistent with MR report from outside facility. Labs show white count of 4.2, hemoglobin is 9.3 was 8.1 on 07/16/2023, platelets are 200 does show a microcytic anemia. INR is 3.4. Sodium is 131, CO2 is 21 with a potassium of 43.9, creatinine is 1.01 with a glucose of 144 total bilirubin is 1.7 was elevated in 2020 at 1.5 with otherwise normal LFTs. Discussed with patient and family does not appear to have new stroke-like changes. I do not feel he requires repeat MR today, would have him follow up with Ophthalmology if Vit flashes are persistent and was encouraged to return if having any other new or increasing symptoms. They are in process of setting up PT for follow-up. Discharge Plan Departure Patient Disposition: Home Clinical Impression: Headache, Visual changes Activity Restrictions/Additional Instructions: Your imaging today shows changes consistent with your recent stroke in the left BURGLAR ALARM SUPERINTENDENT region of your brain, there is no signs of bleeding or swelling. Your labs do show hemoglobin that has a little bit low, consistent with your labs when you are at [facility] last week. Sodium was very mildly low at 131. Follow up with your physician for recheck as needed. If you continued to have color changes in your vision I would follow up with Ophthalmology for additional evaluation. Please make sure to continue your aspirin and Xarelto daily. Please return for worsening headaches, sudden changes to vision, new weakness, facial droop, inability to move, passing out, new chest pain or shortness of breath or other new or concerning changes. Prescriptions: No Action hydrochlorothiazide 25 mg tablet 25 mg PO DAILY aspirin 81 mg Tablet 81 mg PO DAILY losartan [Cozaar] 100 mg Tablet 100 mg PO DAILY metformin 500 mg tablet 1,000 mg PO BID levothyroxine [Synthroid] 50 mcg tablet 50 mcg PO DAILY ascorbic acid (vitamin C) 1,000 mg capsule 1 g PO Q6H vitamin B complex [B Complex-Vitamin B12] Tablet 1 tab PO DAILY rosuvastatin 5 mg tablet 5 mg PO DAILY coenzyme [id number] E 100-100 mg-unit capsule PO zinc acetate 25 mg (zinc) capsule 25 mg PO DAILY quercetin 500 mg capsule PO nitroglycerin 0.4 mg tablet, sublingual 0.4 mg sublingual Q5-15M PRN Rx Instructions: do not exceed 3 doses per episode cholecalciferol (vitamin D3) 50 mcg (2,000 unit) tablet,chewable 6,000 unit PO DAILY Xarelto 20 mg tablet 20 mg PO DAILY Rx Instructions: must administer with evening meal multivitamin Tablet 1 tab PO DAILY Referrals: Sree Carnes DO [Primary Care Provider] - Stand Alone Forms: Patient Portal/API
[2023-07-21 11:54] LABS: Add Manual Diff / Slide Review NO; Basophils Absolute Auto 0 /uL (0-100); Basophils Percent Auto 0.3 % (0-2); Eosinophils Absolute Auto 0 /uL (0-450); Eosinophils Percent Auto 0.7 % (2-4); Hematocrit 27.7 % (41-53); Hemoglobin 9.3 g/dL (13.5-17.5); Lymphocytes Absolute Auto 300 /uL (1100-4500); Lymphocytes Percent Auto 7.3 % (25-40); Mean Corpuscular HGB Conc 33.6 % (30-36); Mean Corpuscular Hemoglobin 31.7 PG (26-34); Mean Corpuscular Volume 94.3 fL (80-100); Monocytes Absolute Auto 300 /uL (0-900); Monocytes Percent Auto 7.5 % (3-14); Neutrophils Absolute Auto 3500 /uL (1500-7000); Neutrophils Percent Auto 84.2 % (50-75); Platelet Count 200 X10^3/uL (150-400); Red Blood Cell Count 2.93 X10^6/uL (4.5-5.9); White Blood Cell Count 4.2 X10^3/uL (4.5-11.0)
[2023-07-21 12:00] VITALS: BP 132/60; PULSE 72; RESP 18; O2SAT 98
[2023-07-21 12:01] LABS: INR 3.4 (0.9-1.3); Prothrombin Time 39.7 SECONDS (9.4-12.5)
[2023-07-21 12:07] LABS: Alanine Aminotransferase 20 IU/L (<50); Albumin 3.9 g/dL (3.5-5.0); Albumin Globulin Ratio 1.5 (1.0-2.8); Alkaline Phosphatase 77 U/L (38-126); Aspartate Aminotransferase 32 IU/L (17-59); BUN Creatinine Ratio 16.8 (6-22); Bilirubin Total 1.7 mg/dL (0.2-1.3); Blood Urea Nitrogen 17 mg/dL (9-20); Carbon Dioxide 21 mmol/L (22-32); Chloride 99 mmol/L (98-107); Estimated Glomerular Filt Rate > 60 mL/min (>60); Globulin 2.6 g/dL (1.7-4.1); Glucose 144 mg/dL (80-110); HEMOLYSIS 20 (0-50); Lipase 62 U/L (23-300); Potassium 3.9 mmol/L (3.4-5.1); Sodium 131 mmol/L (137-145); Total Protein 6.5 g/dL (6.3-8.2)
[2023-07-21 12:25] VITALS: BP 148/67; PULSE 68; RESP 17; O2SAT 98
== END 2023-07-21 12:47 | disposition home or self-care (01) ==
PROVIDERS: Emergency Provider Emergency Medicine; PCP Family Medicine
DX: R51.9 Headache, unspecified (principal); H53.8 Other visual disturbances; Z79.01 Long term (current) use of anticoagulants; Z86.73 Personal history of transient ischemic attack (TIA), and cerebral infarction without residual deficits
CPT/HCPCS: 36415; 70450; 80053; 83690; 85025; 85610; 99284

== ENCOUNTER → 2024-02-03 10:49 | Outpatient (CLI) | payer MEDICARE, OTHER, SELFPAY ==
[2022-01-23 15:57] VITALS: BMI 25.4
[2024-02-05 08:17] LABS: PSA Free % 36.2 % (.)
== END ==
PROVIDERS: PCP Internal Medicine; Referring Provider Urology; Visit Provider Urology
DX: N40.0 Benign prostatic hyperplasia without lower urinary tract symptoms (principal); R97.20 Elevated prostate specific antigen [PSA]; R36.1 Hematospermia
CPT/HCPCS: 36415; 81002; 84153; 84154; 99214

== ENCOUNTER 2024-02-26 15:29 | Emergency (ER) | payer MEDICARE, OTHER, SELFPAY ==
[2022-01-23 15:57] VITALS: BMI 25.4
[2024-02-26 15:38] VITALS: BP 189/86; PULSE 61; RESP 16; TEMP 36.3; O2SAT 98; BMI 25.1
--- NOTE | 2024-02-26 15:45 | DI.CT.S_ITS ---
PROCEDURE: CT CERVICAL SPINE WO CON INDICATIONS: fall on thinners TECHNIQUE: Noncontrast 3 mm thick sections acquired from the skull base to the T4 level. Sagittal and coronal reformats were then constructed. For radiation dose reduction, the following was used: automated exposure control, adjustment of mA and/or kV according to patient size. COMPARISON: [facility], CT, CT HEAD/BRAIN WO CON, 02/26/2024, 15:52. FINDINGS: Image quality: Excellent. Bones: No fractures or dislocations. Visualized superior ribs are intact. Severe cervical spondylosis. Soft tissues: Prevertebral soft tissues are normal in thickness. No paravertebral hematomas. No apical pneumothoraces. Incidental note made of the presence of an old left TOOL STRAIGHTENER distribution infarct with encephalomalacia. IMPRESSION: No displaced fracture or traumatic subluxation. Severe cervical spondylosis. 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 Dictated by: Sen Cabello M.D. on 02/26/2024 at 16:48 Approved by: Sen Cabello M.D. on 02/26/2024 at 16:51
--- NOTE | 2024-02-26 15:45 | DI.CT.S_ITS ---
PROCEDURE: CT HEAD/BRAIN WO CON INDICATIONS: fall on thinners TECHNIQUE: Noncontrast 4.5 mm thick angled axial sections acquired from the foramen magnum to the vertex, with coronal and sagittal reformats. For radiation dose reduction, the following was used: automated exposure control, adjustment of mA and/or kV according to patient size. COMPARISON: [facility], CT, CT HEAD/BRAIN WO CON, 07/21/2023, 11:28. FINDINGS: Image quality: Diagnostic. CSF spaces: Basal cisterns are patent. No extra-axial fluid collections. The ventricles are symmetric in size and shape. Brain: No intracranial bleeds or masses. There is cerebral volume loss for age, with resultant ventricular and sulcal prominence. There are periventricular and deep white matter chronic small vessel ischemic changes. There is evolution of a left PHONE OPERATOR distribution infarct, which was previously subacute and is now chronic with resultant encephalomalacia and compensatory dilatation the occipital horn of the left lateral ventricle. There is intracranial internal carotid artery atherosclerosis. Skull and face: Calvarium and visualized facial bones appear intact, without suspicious lesions. Sinuses: Visualized sinuses and mastoids are clear. IMPRESSION: 1. 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 2. No acute intracranial process. Dictated by: Sen Cabello M.D. on 02/26/2024 at 16:52 Approved by: Sen Cabello M.D. on 02/26/2024 at 16:57
--- NOTE | 2024-02-26 15:46 | PC.NURSE ---
Discussed pt w/ MD Hale. CT head and neck. No blood work needed at this time.
--- NOTE | 2024-02-26 19:18 | ED_ITS ---
HPI - Fall General Chief Complaint: Fall Stated Complaint: GFL, hit head, +blood thinners Time Seen by Provider: 02/26/24 19:15 Source: patient Mode of arrival: Ambulatory Limitations: no limitations History of Present Illness HPI Narrative: Patient is an 83-year-old male. Is on anticoagulation secondary to atrial fibrillation. Is here for evaluation of injuries that he sustained when he states he was at [employer]. He states he was taking a couple steps backwards and he tripped over a door. That was located on the floor. He did hit his head. No loss of consciousness. No neck pain. No other injuries from the event. Is able to get up and walk afterwards. Does have a bump on the back left side of his head. No headache. No vision changes. Related Data Home Medications Medication Instructions Recorded Confirmed aspirin 81 mg tablet 81 mg PO DAILY 01/07/21 02/03/24 losartan 100 mg tablet (Cozaar) 100 mg PO DAILY 01/07/21 02/03/24 hydrochlorothiazide 25 mg tablet 25 mg PO DAILY 01/15/21 02/03/24 ascorbic acid (vitamin C) 1,000 mg 1 g PO Q6H 01/23/22 02/03/24 capsule levothyroxine 50 mcg tablet 50 mcg PO DAILY 01/23/22 02/03/24 (Synthroid) vitamin B complex (B 1 tab PO DAILY 01/23/22 02/03/24 Complex-Vitamin B12 tablet) coenzyme [id number] E 100 mg-100 cap PO 05/28/22 02/03/24 unit capsule nitroglycerin 0.4 mg sublingual 0.4 mg sublingual Q5-15M PRN 05/28/22 02/03/24 tablet quercetin 500 mg capsule mg PO 05/28/22 02/03/24 rosuvastatin 5 mg tablet 5 mg PO DAILY 05/28/22 02/03/24 zinc acetate 25 mg (zinc) capsule 25 mg PO DAILY 05/28/22 02/03/24 metformin 500 mg tablet 1,000 mg PO BID 07/23/22 02/03/24 rivaroxaban 20 mg tablet (Xarelto) 20 mg PO DAILY 07/23/22 02/03/24 multivitamin 1 tab PO DAILY 12/18/22 02/03/24 cholecalciferol (vitamin D3) 50 6,000 unit PO DAILY 05/20/23 02/03/24 mcg (2,000 unit) chewable tablet amlodipine 2.5 mg tablet 2.5 mg PO DAILY 02/03/24 02/03/24 Allergies Allergy/AdvReac Type Severity Reaction Status Date / Time grass pollen Allergy Intermediate HAY FEVER Verified 07/21/23 11:16 lisinopril AdvReac Cough Verified 07/21/23 11:16 Review of Systems Review of Systems ROS Unobtainable: All systems reviewed & are unremarkable except as noted in HPI and below Patient History Medical History History of nephrolithiasis BPH NOS w/o ur obs/LUTS Elevated PSA Family history of prostate cancer Male circumcision H/O nephrolithotomy with removal of calculi 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 Afib HTN (hypertension) Type 2 diabetes mellitus CAD (coronary artery disease) Surgical History History of hip replacement Hx of heart artery stent Family History Father Cancer Mother Suicide Brother Cancer Social History marital status: number of children: 5 household members: significant other Smoking Status: Never smoker Type(s) of exercise: walking frequency: other Smoking Status: Never smoker alcohol intake frequency: 0-2 drinks per day Substance Use Type: does not use Exam Initial Vital Signs Initial Vital Signs: Vital Signs Temperature 97.4 F L 02/26/24 15:38 Pulse Rate 61 02/26/24 15:38 Respiratory Rate 16 02/26/24 15:38 Blood Pressure 189/86 H 02/26/24 15:38 Pulse Oximetry 98 02/26/24 15:38 Oxygen Delivery Method Room Air 02/26/24 15:38 Const General: cooperative, healthy appearing and comfortable [facility] Head: contusion (Left parietal region), No hematoma, No laceration and No palpable skull fracture Resp Effort & Inspection: normal respiratory effort Cardio Rate: regular rate Back/Spine/Pelvis Cervical Spine: No cervical spinal tenderness Skin Other: Small contusion left parietal region of the scalp. Neuro General: patient alert, patient awake, patient oriented x3 and moves all extremities Extrem General: normal to inspection and capillary refill normal Scores [facility] CT Head Rule Age <16 years old: No Patient on blood thinners: Yes Seizure after injury: No Exclusion: Patient meets exclusion criteria GCS [place] coma scale eye opening: Spontaneous [place] coma scale verbal response: Orientated [place] coma scale motor response: Obey commands [place] coma scale total score: 15 Course Orders Ordered: ED Orders 02/26/24 15:45 CT cervical spine wo con Stat CT head/brain wo con Stat Vital Signs Vital signs: Vital Signs - 8 hr 02/26/24 19:27 Temperature 98.4 F Pulse Rate 65 Respiratory Rate 18 Blood Pressure 175/95 H Pulse Oximetry 98 Oxygen Delivery Method Room Air MDM - Fall Imaging Data CT - cervical spine: Radiologist's Impression: PROCEDURE: CT CERVICAL SPINE WO CON INDICATIONS: fall on thinners TECHNIQUE: Noncontrast 3 mm thick sections acquired from the skull base to the T4 level. Sagittal and coronal reformats were then constructed. For radiation dose reduction, the following was used: automated exposure control, adjustment of mA and/or kV according to patient size. COMPARISON: [facility], CT, CT HEAD/BRAIN WO CON, 02/26/2024, 15:52. FINDINGS: Image quality: Excellent. Bones: No fractures or dislocations. Visualized superior ribs are intact. Severe cervical spondylosis. Soft tissues: Prevertebral soft tissues are normal in thickness. No paravertebral hematomas. No apical pneumothoraces. Incidental note made of the presence of an old left VACUUM FORM OPERATOR distribution infarct with encephalomalacia. IMPRESSION: No displaced fracture or traumatic subluxation. Severe cervical spondylosis. Old left VACUUM FORM OPERATOR distribution infarct. CT scan - head: Radiologist's Impression: PROCEDURE: CT HEAD/BRAIN WO CON INDICATIONS: fall on thinners TECHNIQUE: Noncontrast 4.5 mm thick angled axial sections acquired from the foramen magnum to the vertex, with coronal and sagittal reformats. For radiation dose reduction, the following was used: automated exposure control, adjustment of mA and/or kV according to patient size. COMPARISON: [facility], CT, CT HEAD/BRAIN WO CON, 07/21/2023, 11:28. FINDINGS: Image quality: Diagnostic. CSF spaces: Basal cisterns are patent. No extra-axial fluid collections. The ventricles are symmetric in size and shape. Brain: No intracranial bleeds or masses. There is cerebral volume loss for age, with resultant ventricular and sulcal prominence. There are periventricular and deep white matter chronic small vessel ischemic changes. There is evolution of a left VACUUM FORM OPERATOR distribution infarct, which was previously subacute and is now chronic with resultant encephalomalacia and compensatory dilatation the occipital horn of the left lateral ventricle. There is intracranial internal carotid artery atherosclerosis. Skull and face: Calvarium and visualized facial bones appear intact, without suspicious lesions. Sinuses: Visualized sinuses and mastoids are clear. IMPRESSION: 1. Evolution of previous left VACUUM FORM OPERATOR distribution infarct, which is now chronic. 2. No acute intracranial process. [facility] Narrative Medical decision making narrative: GCS of 15. No extremity injuries. This was not mechanical fall based on his presentation today. He tripped over an object that was on the floor. Head CT and cervical spine CT are negative for acute pathology. Will discharge patient home with return precautions. He expressed understanding and agreement with plan. Discharge Plan Departure Patient Disposition: Home Clinical Impression: Closed head injury Instructions: Closed Head Injury Activity Restrictions/Additional Instructions: Continue to take all of your medications as directed. You can take Tylenol for any headaches. Return to the emergency department for new or worsening symptoms. Prescriptions: No Action hydrochlorothiazide 25 mg tablet 25 mg PO DAILY aspirin 81 mg Tablet 81 mg PO DAILY losartan [Cozaar] 100 mg Tablet 100 mg PO DAILY metformin 500 mg tablet 1,000 mg PO BID levothyroxine [Synthroid] 50 mcg tablet 50 mcg PO DAILY ascorbic acid (vitamin C) 1,000 mg capsule 1 g PO Q6H vitamin B complex [B Complex-Vitamin B12] Tablet 1 tab PO DAILY rosuvastatin 5 mg tablet 5 mg PO DAILY coenzyme [id number] E 100-100 mg-unit capsule PO zinc acetate 25 mg (zinc) capsule 25 mg PO DAILY quercetin 500 mg capsule PO nitroglycerin 0.4 mg tablet, sublingual 0.4 mg sublingual Q5-15M PRN Rx Instructions: do not exceed 3 doses per episode cholecalciferol (vitamin D3) 50 mcg (2,000 unit) tablet,chewable 6,000 unit PO DAILY Xarelto 20 mg tablet 20 mg PO DAILY Rx Instructions: must administer with evening meal multivitamin Tablet 1 tab PO DAILY amlodipine 2.5 mg tablet 2.5 mg PO DAILY Referrals: Santiago Godfrey MD [Primary Care Provider] - Stand Alone Forms: Patient Portal/API
[2024-02-26 19:27] VITALS: BP 175/95; PULSE 65; RESP 18; TEMP 36.9; O2SAT 98
== END 2024-02-26 19:27 | disposition home or self-care (01) ==
PROVIDERS: Emergency Provider Emergency Medicine; PCP Internal Medicine
DX: S09.90XA Unspecified injury of head, initial encounter (principal); W18.30XA Fall on same level, unspecified, initial encounter; Z79.01 Long term (current) use of anticoagulants
CPT/HCPCS: 70450; 72125; 99281; 99284

== ENCOUNTER 2024-05-01 08:42 | Emergency (ER) | payer MEDICARE, OTHER, SELFPAY ==
[2022-01-23 15:57] VITALS: BMI 25.4
[2024-05-01 09:09] VITALS: BP 128/60; PULSE 85; RESP 19; TEMP 36.9; O2SAT 98; BMI 25.1
--- NOTE | 2024-05-01 09:21 | ED.URI ---
HPI - URI/Sore Throat General Chief Complaint: Nasal Problem Stated Complaint: cough/congestion Time Seen by Provider: 05/01/24 08:59 Source: patient Mode of arrival: Ambulatory History of Present Illness HPI Narrative: 83-year-old male with 4 days duration of dry cough, some eye discharge from both eyes today. No fevers or chills. Denies shortness of breath, denies chest pain. No household or close contact exposures to persons with similar symptoms. Home COVID test was negative. Here for evaluation of lungs. Also would like something for eye discharge. Related Data Home Medications Medication Instructions Recorded Confirmed aspirin 81 mg tablet 81 mg PO DAILY 01/07/21 02/03/24 losartan 100 mg tablet (Cozaar) 100 mg PO DAILY 01/07/21 02/03/24 hydrochlorothiazide 25 mg tablet 25 mg PO DAILY 01/15/21 02/03/24 ascorbic acid (vitamin C) 1,000 mg 1 g PO Q6H 01/23/22 02/03/24 capsule levothyroxine 50 mcg tablet 50 mcg PO DAILY 01/23/22 02/03/24 (Synthroid) vitamin B complex (B 1 tab PO DAILY 01/23/22 02/03/24 Complex-Vitamin B12 tablet) coenzyme [id number] E 100 mg-100 cap PO 05/28/22 02/03/24 unit capsule nitroglycerin 0.4 mg sublingual 0.4 mg sublingual Q5-15M PRN 05/28/22 02/03/24 tablet quercetin 500 mg capsule mg PO 05/28/22 02/03/24 rosuvastatin 5 mg tablet 5 mg PO DAILY 05/28/22 02/03/24 zinc acetate 25 mg (zinc) capsule 25 mg PO DAILY 05/28/22 02/03/24 metformin 500 mg tablet 1,000 mg PO BID 07/23/22 02/03/24 rivaroxaban 20 mg tablet (Xarelto) 20 mg PO DAILY 07/23/22 02/03/24 multivitamin 1 tab PO DAILY 12/18/22 02/03/24 cholecalciferol (vitamin D3) 50 6,000 unit PO DAILY 05/20/23 02/03/24 mcg (2,000 unit) chewable tablet amlodipine 2.5 mg tablet 2.5 mg PO DAILY 02/03/24 02/03/24 Allergies Allergy/AdvReac Type Severity Reaction Status Date / Time grass pollen Allergy Intermediate HAY FEVER Verified 05/01/24 10:01 lisinopril AdvReac Cough Verified 05/01/24 10:01 Review of Systems Review of Systems Narrative: See HPI Patient History Medical History History of nephrolithiasis BPH NOS w/o ur obs/LUTS Elevated PSA Family history of prostate cancer Male circumcision H/O nephrolithotomy with removal of calculi 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 HEAD: Atraumatic. Normocephalic. EYES: Pupils equal round and reactive. Extraocular motions intact. No scleral icterus. White-yellow conjunctival discharge noted bilateral, without significant redness of the sclerae. No eyelid swelling or periorbital swelling or redness. No pain with extraocular movements ENT: Nose without bleeding, purulent drainage. Throat without erythema, tonsillar hypertrophy or exudate. Airway patent. NECK: Trachea midline. Non tender CARDIOVASCULAR: Regular rate and rhythm without murmurs, gallops, or rubs. RESPIRATORY: Clear to auscultation. Breath sounds equal bilaterally. No wheezes, rales, or rhonchi. GASTROINTESTINAL: Abdomen soft, non-tender, nondistended. EXTREMITIES: No edema or joint tenderness. BACK: Nontender without deformity or crepitance. No flank tenderness. NEURO: AOx3. Motor functions grossly nonfocal SKIN: No rash or erythema of visible areas Initial Vital Signs Initial Vital Signs: Vital Signs Temperature 98.5 F 05/01/24 09:09 Pulse Rate 85 05/01/24 09:09 Respiratory Rate 19 05/01/24 09:09 Blood Pressure 128/60 05/01/24 09:09 Pulse Oximetry 98 05/01/24 09:09 Oxygen Delivery Method Room Air 05/01/24 09:09 Course Orders Ordered: Discontinued Medications Erythromycin (Erythromycin Ophth 1 Gm Oint) 1 applic EYE-BOTH NOW ONE Stop: 05/01/24 09:43 Last Admin: 05/01/24 09:53 Dose: 1 applic Documented By: BRIGIDA Vital Signs Vital signs: Vital Signs - 8 hr 05/01/24 09:09 Temperature 98.5 F Pulse Rate 85 Respiratory Rate 19 Blood Pressure 128/60 Pulse Oximetry 98 Oxygen Delivery Method Room Air MDM - URI/Sore Throat Lab Data Labs: Lab Results 05/01/24 Range/Units 08:49 SARS-CoV-2 (PCR) Negative (Negative) Influenza A (RT-PCR) Flu a negative (NEGATIVE) Influenza B (RT-PCR) Flu b negative (NEGATIVE) RSV (PCR) Negative (Negative) MDM Narrative Medical decision making narrative: 83-year-old male with 4 days duration upper respiratory infection symptoms, no hypoxia, no fever, no respiratory distress, lungs clear, reassuring respiratory exam. Vitals unremarkable. Bilateral eye discharge without significant scleral redness. No eye injuries known, or significant pain. Topical erythromycin ophthalmic ointment dispensed, to use next few days. Home COVID swab reported negative. COVID/flu/RSV swab sent here, results are pending at this time. Covid/flu/RSV negative. Discussed OTC symptomatic medication treatments for URI, use erythromycin topical abx dispensed 3/day for 5d left eye, return precautions discssued. Home with family Discharge Plan Departure Patient Disposition: Home Clinical Impression: Acute upper respiratory infection, Conjunctivitis Activity Restrictions/Additional Instructions: 4 days' duration of dry cough, eye discharge now present. No fever on triage, no oxygenation, lungs clear on exam, reassuring lung exam. COVID/flu swab negative. Topical erythromycin ointment applied for conjunctivitis symptoms, might likely be viral in etiology by history, but hopefully might prevent superinfection from bacteria, to use 1 ribbon each eye 3 times daily for the next few days. Recheck with your regular doctor next week if not improving and symptoms next few days. Return earlier to this/nearest emergency department for any change worsening symptoms or any concerns prior Prescriptions: No Action hydrochlorothiazide 25 mg tablet 25 mg PO DAILY aspirin 81 mg Tablet 81 mg PO DAILY losartan [Cozaar] 100 mg Tablet 100 mg PO DAILY metformin 500 mg tablet 1,000 mg PO BID levothyroxine [Synthroid] 50 mcg tablet 50 mcg PO DAILY ascorbic acid (vitamin C) 1,000 mg capsule 1 g PO Q6H vitamin B complex [B Complex-Vitamin B12] Tablet 1 tab PO DAILY rosuvastatin 5 mg tablet 5 mg PO DAILY coenzyme [id number] E 100-100 mg-unit capsule PO zinc acetate 25 mg (zinc) capsule 25 mg PO DAILY quercetin 500 mg capsule PO nitroglycerin 0.4 mg tablet, sublingual 0.4 mg sublingual Q5-15M PRN Rx Instructions: do not exceed 3 doses per episode cholecalciferol (vitamin D3) 50 mcg (2,000 unit) tablet,chewable 6,000 unit PO DAILY Xarelto 20 mg tablet 20 mg PO DAILY Rx Instructions: must administer with evening meal multivitamin Tablet 1 tab PO DAILY amlodipine 2.5 mg tablet 2.5 mg PO DAILY Referrals: Santiago Godfrey MD [Primary Care Provider] - Stand Alone Forms: Patient Portal/API/Survey
[2024-05-01] MEDS: ERYTHROMYCIN OPHTH 1 GM OINT 1 APPLIC EYE-BOTH (09:53)
[2024-05-01 09:58] LABS: COVID-19 CEPHEID 4-PLEX PCR Negative (Negative); Influenza A - CEPHEID Flu A NEGATIVE (NEGATIVE); Influenza B - CEPHEID Flu B NEGATIVE (NEGATIVE); Respiratory Syncytial Virus Negative (Negative)
== END 2024-05-01 10:14 | disposition home or self-care (01) ==
PROVIDERS: Emergency Provider Emergency Medicine; PCP Internal Medicine
DX: J06.9 Acute upper respiratory infection, unspecified (principal); H10.9 Unspecified conjunctivitis
CPT/HCPCS: 0241U; 99282

== ENCOUNTER 2024-05-22 18:58 | Emergency (ER) | payer MEDICARE, OTHER, SELFPAY ==
[2022-01-23 15:57] VITALS: BMI 25.4
[2024-05-22] VITALS (13 sets, daily range): BP systolic 147–171; BP diastolic 66–78; PULSE 60–70; RESP 16–18; TEMP 37.1; O2SAT 95–98; BMI 24.3
--- NOTE | 2024-05-22 19:14 | DI.RAD.S_ITS ---
PROCEDURE: XR RIBS RT MIN 3V W CXR 1V INDICATIONS: fall TECHNIQUE: 4 views of the ribs were acquired, along with a single view chest. COMPARISON: None. FINDINGS: Surgical changes and devices: None. Bones and chest wall: Suspect mildly displaced lateral fracture of the right 12th rib. Lungs and pleura: Mildly prominent interstitium. No pleural effusions. Suspected basal atelectasis or scarring Mediastinum: Heart size is borderline enlarged IMPRESSION: Suspect mildly displaced right 12th rib lateral fracture. Mildly prominent pulmonary interstitium, possibly viral infection/bronchitis. Basal atelectasis or scarring also seen. Consider future imaging surveillance to assess for resolution. Dictated by: Victor Manuel Mccracken M.D. on 05/22/2024 at 20:06 Approved by: Victor Manuel Mccracken M.D. on 05/22/2024 at 20:08
--- NOTE | 2024-05-22 19:14 | DI.RAD.S_ITS ---
PROCEDURE: XR HIP W PEL IF DONE LT 2V INDICATIONS: fall TECHNIQUE: 2 views of the hip were acquired. COMPARISON: [facility], CR, XR HIP W PEL IF DONE NAT 3TO4V, 01/03/2022, 14:45. FINDINGS: Bones: [id number] right hip arthrosis. Left hip arthroplasty. Pubic symphysis and lumbar degenerative changes also present. No pubic diastasis. Mildly displaced periprosthetic left proximal femur fracture is present. Soft tissues: Periprosthetic lucencies and heterotopic ossifications. IMPRESSION: Mildly displaced periprosthetic left proximal femur fracture. There para prostate background lucencies suggestive of loosening, and heterotopic ossifications. Dictated by: Victor Manuel Mccracken M.D. on 05/22/2024 at 20:08 Approved by: Victor Manuel Mccracken M.D. on 05/22/2024 at 20:09
--- NOTE | 2024-05-22 19:14 | DI.RAD.S_ITS ---
PROCEDURE: XR FEMUR LT 1V INDICATIONS: fall TECHNIQUE: 2 views of the femur were acquired. COMPARISON: [facility], CR, XR HIP W PEL IF DONE LT 2V, 05/22/2024, 19:21. FINDINGS: Bones: Periprosthetic mildly displaced fracture of the proximal femur. There is significant periprosthetic lucency hip arthroplasty in place.. Soft tissues: Significant heterotopic ossification is present. IMPRESSION: Mildly displaced periprosthetic proximal femur fracture. Background periprosthetic lucencies and heterotopic ossifications. Dictated by: Victor Manuel Mccracken M.D. on 05/22/2024 at 20:05 Approved by: Victor Manuel Mccracken M.D. on 05/22/2024 at 20:06
--- NOTE | 2024-05-22 20:26 | ED.FALL ---
HPI - Fall <Elisa DO Alexia - Last Filed: 05/24/24 01:46> General Chief Complaint: Fall Stated Complaint: GLF x2, L hip pain Time Seen by Provider: 05/22/24 20:14 History of Present Illness HPI Narrative: Patient is a 81-year-old male history of atrial fibrillation on xeralto presenting today with left hip pain. He reports he was walking in the dark to a constitution party carrying a bottle of mine when he tripped and fell. The bowel of wine did not break. He did not hit his head or lose consciousness. He has no nausea or vomiting. Unable to ambulate or stand due to significant left hip pain. No neck pain. He only has pain with movement. Related Data Home Medications Medication Instructions Recorded Confirmed aspirin 81 mg tablet 81 mg PO DAILY 01/07/21 02/03/24 losartan 100 mg tablet (Cozaar) 100 mg PO DAILY 01/07/21 02/03/24 hydrochlorothiazide 25 mg tablet 25 mg PO DAILY 01/15/21 02/03/24 ascorbic acid (vitamin C) 1,000 mg 1 g PO Q6H 01/23/22 02/03/24 capsule levothyroxine 50 mcg tablet 50 mcg PO DAILY 01/23/22 02/03/24 (Synthroid) vitamin B complex (B 1 tab PO DAILY 01/23/22 02/03/24 Complex-Vitamin B12 tablet) coenzyme [id number] E 100 mg-100 cap PO 05/28/22 02/03/24 unit capsule nitroglycerin 0.4 mg sublingual 0.4 mg sublingual Q5-15M PRN 05/28/22 02/03/24 tablet quercetin 500 mg capsule mg PO 05/28/22 02/03/24 rosuvastatin 5 mg tablet 5 mg PO DAILY 05/28/22 02/03/24 zinc acetate 25 mg (zinc) capsule 25 mg PO DAILY 05/28/22 02/03/24 metformin 500 mg tablet 1,000 mg PO BID 07/23/22 02/03/24 rivaroxaban 20 mg tablet (Xarelto) 20 mg PO DAILY 07/23/22 02/03/24 multivitamin 1 tab PO DAILY 12/18/22 02/03/24 cholecalciferol (vitamin D3) 50 6,000 unit PO DAILY 05/20/23 02/03/24 mcg (2,000 unit) chewable tablet amlodipine 2.5 mg tablet 2.5 mg PO DAILY 02/03/24 02/03/24 amlodipine 5 mg tablet 5 mg PO DAILY 05/22/24 05/22/24 hydrochlorothiazide 25 mg tablet 25 mg PO DAILY 05/22/24 05/22/24 losartan 100 mg tablet 100 mg PO DAILY 05/22/24 05/22/24 Allergies Allergy/AdvReac Type Severity Reaction Status Date / Time grass pollen Allergy Intermediate HAY FEVER Verified 05/01/24 10:01 lisinopril AdvReac Cough Verified 05/01/24 10:01 Patient History <Elisa Hale DO - Last Filed: 05/24/24 01:46> Medical History History of nephrolithiasis BPH NOS w/o ur obs/LUTS Elevated PSA Family history of prostate cancer Male circumcision H/O nephrolithotomy with removal of calculi 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 Afib HTN (hypertension) Type 2 diabetes mellitus CAD (coronary artery disease) Surgical History History of hip replacement Hx of heart artery stent Family History Father Cancer Mother Suicide Brother Cancer Social History marital status: number of children: 5 household members: significant other Smoking Status: Never smoker Type(s) of exercise: walking frequency: other Smoking Status: Never smoker alcohol intake frequency: 0-2 drinks per day Exam <Elisa Hale DO - Last Filed: 05/24/24 01:46> Initial Vital Signs Initial Vital Signs: Vital Signs Temperature 98.7 F 05/22/24 19:06 Pulse Rate 60 05/22/24 19:06 Respiratory Rate 16 05/22/24 19:06 Blood Pressure 150/70 H 05/22/24 19:06 Pulse Oximetry 97 05/22/24 19:06 Oxygen Delivery Method Room Air 05/22/24 19:06 GENERAL: Alert well-appearing 83-year-old male and in no acute distress. HEENT: Head atraumatic,EOMI, pupils reactive, face symmetric, moist mucous membranes CARDIOVASCULAR: Regular rate and rhythm without murmurs, rubs or gallops. RESPIRATORY: Breath sounds equal bilaterally, no wheezes rales or rhonchi. ABDOMEN: Soft, nontender. Normoactive bowel sounds all 4 quadrants. No guarding or rebound. EXTREMITIES: Normal range of motion, no clubbing or edema. Neurovascularly intact Left hip pain distal pedal pulse intact no significant swelling NEUROLOGICAL: Alert and oriented x4.Normal gait and speech. Cranial nerves II through XII grossly intact. SKIN: Warm, dry, no laceration, no petechiae, no rashes or lesions. <Alejandro Renee MD - Last Filed: 05/23/24 19:42> Initial Vital Signs Initial Vital Signs: Vital Signs Temperature 98.7 F 05/22/24 19:06 Pulse Rate 60 05/22/24 19:06 Respiratory Rate 16 05/22/24 19:06 Blood Pressure 150/70 H 05/22/24 19:06 Pulse Oximetry 97 05/22/24 19:06 Oxygen Delivery Method Room Air 05/22/24 19:06 Course <Elisa Hale DO - Last Filed: 05/24/24 01:46> Orders Ordered: Discontinued Medications Acetaminophen (Acetaminophen 325 Mg Tablet) 650 mg PO Q4H PRN PRN Reason: Fever/Mild Pain (1-3) Hydrocodone Bitart/Acetaminophen (Hydrocodone/Acet 5/325 Tablet) 1 tab PO NOW ONE Stop: 05/23/24 07:37 Last Admin: 05/23/24 07:48 Dose: 1 tab Documented By: KM Morphine Sulfate (Morphine 2 Mg/Ml Inj) 2 mg IV NOW ONE Stop: 05/22/24 20:31 Last Admin: 05/22/24 20:36 Dose: 2 mg Documented By: HNG Morphine Sulfate (Morphine 2 Mg/Ml Inj) 2 mg IV Q2HR PRN PRN Reason: Pain, Moderate (4-6) Last Admin: 05/23/24 18:33 Dose: 2 mg Documented By: MPO Vital Signs Vital signs: Vital Signs - 8 hr 05/23/24 11:59 05/23/24 12:01 05/23/24 12:21 Pulse Rate 70 66 Blood Pressure 144/65 H Pulse Oximetry 98 98 05/23/24 12:30 05/23/24 13:00 05/23/24 13:30 Pulse Rate 68 69 66 Blood Pressure Pulse Oximetry 96 97 97 05/23/24 14:00 05/23/24 14:00 05/23/24 14:30 Pulse Rate 72 68 Blood Pressure 141/66 H Pulse Oximetry 97 96 <Alejandro Renee MD - Last Filed: 05/23/24 19:42> Orders Ordered: Discontinued Medications Acetaminophen (Acetaminophen 325 Mg Tablet) 650 mg PO Q4H PRN PRN Reason: Fever/Mild Pain (1-3) Hydrocodone Bitart/Acetaminophen (Hydrocodone/Acet 5/325 Tablet) 1 tab PO NOW ONE Stop: 05/23/24 07:37 Last Admin: 05/23/24 07:48 Dose: 1 tab Documented By: KM Morphine Sulfate (Morphine 2 Mg/Ml Inj) 2 mg IV NOW ONE Stop: 05/22/24 20:31 Last Admin: 05/22/24 20:36 Dose: 2 mg Documented By: HNG Morphine Sulfate (Morphine 2 Mg/Ml Inj) 2 mg IV Q2HR PRN PRN Reason: Pain, Moderate (4-6) Last Admin: 05/23/24 18:33 Dose: 2 mg Documented By: MPO Vital Signs Vital signs: Vital Signs - 8 hr 05/23/24 11:59 05/23/24 12:01 05/23/24 12:21 Pulse Rate 70 66 Blood Pressure 144/65 H Pulse Oximetry 98 98 05/23/24 12:30 05/23/24 13:00 05/23/24 13:30 Pulse Rate 68 69 66 Blood Pressure Pulse Oximetry 96 97 97 05/23/24 14:00 05/23/24 14:00 05/23/24 14:30 Pulse Rate 72 68 Blood Pressure 141/66 H Pulse Oximetry 97 96 MDM - Fall <Elisa Hale DO - Last Filed: 05/24/24 01:46> Lab Data 05/22/24 20:30 05/22/24 20:30 Labs: Lab Results 05/22/24 Range/Units 20:30 WBC 9.3 (4.5-11.0) X10^3/uL RBC 3.61 L (4.5-5.9) X10^6/uL Hgb 11.6 L (13.5-17.5) g/dL Hct 33.1 L (41-53) % MCV 91.6 (80-100) fL MCH 32.0 (26-34) PG MCHC 35.0 (30-36) % RDW 14.3 (11.6-14.8) % Plt Count 324 (150-400) X10^3/uL Neut % (Auto) 84.0 H (50-75) % Lymph % (Auto) 5.6 L (25-40) % [place] % (Auto) 6.4 (3-14) % Eos % (Auto) 2.7 (2-4) % Baso % (Auto) 1.3 (0-2) % Neut # (Auto) 7800 H (8676-6630) /uL Lymph # (Auto) 500 L (9561-1094) /uL [place] # (Auto) 600 (0-900) /uL Eos # (Auto) 300 (0-450) /uL Baso # (Auto) 100 (0-100) /uL Sodium 131 L (137-145) mmol/L Potassium 3.8 (3.4-5.1) mmol/L Chloride 98 (98-107) mmol/L Carbon Dioxide 24 (22-32) mmol/L BUN 23 H (9-20) mg/dL Creatinine 1.14 (0.66-1.25) mg/dL Estimated GFR > 60 (>60) mL/min BUN/Creatinine Ratio 20.2 (6-22) Glucose 140 H (80-110) mg/dL Calcium 10.5 H (8.4-10.2) mg/dL Total Bilirubin 1.4 H (0.2-1.3) mg/dL AST 33 (17-59) IU/L ALT 26 (<50) IU/L Alkaline Phosphatase 102 (38-126) U/L Total Protein 6.9 (6.3-8.2) g/dL Albumin 4.3 (3.5-5.0) g/dL Globulin 2.6 (1.7-4.1) g/dL Albumin/Globulin Ratio 1.7 (1.0-2.8) Imaging Data Extremity x-ray #1: Radiologist's Impression: PROCEDURE: XR FEMUR LT 1V INDICATIONS: fall TECHNIQUE: 2 views of the femur were acquired. COMPARISON: [facility], CR, XR HIP W PEL IF DONE LT 2V, 05/22/2024, 19:21. FINDINGS: Bones: Periprosthetic mildly displaced fracture of the proximal femur. There is significant periprosthetic lucency hip arthroplasty in place.. Soft tissues: Significant heterotopic ossification is present. IMPRESSION: Mildly displaced periprosthetic proximal femur fracture. Background periprosthetic lucencies and heterotopic ossifications. Dictated by: Victor Manuel Mccracken M.D. on 05/22/2024 at 20:05 Extremity x-ray #2: Radiologist's Impression: PROCEDURE: XR HIP W PEL IF DONE LT 2V INDICATIONS: fall TECHNIQUE: 2 views of the hip were acquired. COMPARISON: [facility], , XR HIP W PEL IF DONE NAT 3TO4V, 01/03/2022, 14:45. FINDINGS: Bones: [id number] right hip arthrosis. Left hip arthroplasty. Pubic symphysis and lumbar degenerative changes also present. No pubic diastasis. Mildly displaced periprosthetic left proximal femur fracture is present. Soft tissues: Periprosthetic lucencies and heterotopic ossifications. IMPRESSION: Mildly displaced periprosthetic left proximal femur fracture. There para prostate background lucencies suggestive of loosening, and heterotopic ossifications. Dictated by: Victor Manuel Mccracken M.D. on 05/22/2024 at 20:08 Chest x-ray: Radiologist's Impression: PROCEDURE: XR RIBS RT MIN 3V W CXR 1V INDICATIONS: fall TECHNIQUE: 4 views of the ribs were acquired, along with a single view chest. COMPARISON: None. FINDINGS: Surgical changes and devices: None. Bones and chest wall: Suspect mildly displaced lateral fracture of the right 12th rib. Lungs and pleura: Mildly prominent interstitium. No pleural effusions. Suspected basal atelectasis or scarring Mediastinum: Heart size is borderline enlarged IMPRESSION: Suspect mildly displaced right 12th rib lateral fracture. Mildly prominent pulmonary interstitium, possibly viral infection/bronchitis. Basal atelectasis or scarring also seen. Consider future imaging surveillance to assess for resolution. Dictated by: Victor Manuel Mccracken M.D. on 05/22/2024 at 20:06 [facility] Narrative Medical decision making narrative: [facility] CC: Left hip pain right rib pain Complicating co-morbidities: Atrial fibrillation on Xarelto prior left [place]UELA Medical records reviewed: [ ] Differential considered: [ ] Exam documented above, pertinent findings include: Awake alert 83-year-old male no obvious head trauma he does have pain in the left hip distal pedal pulse intact. Mild right-sided pain but no paradoxical movement Lab Test results independently reviewed as above. Pertinent findings: WBC 9.3 hemoglobin 11.6 hematocrit 33.1 platelets 324 Sodium 131 potassium 3.8 chloride 98 carbon dioxide 24 BUN 23 creatinine 1.1 Calcium 10.5 Bilirubin 1.4, AST 33 ALT 26 alk-phos 102 Independently reviewed EKG as above Imaging studies independently reviewed: X-ray shows periprosthetic left femur fracture Right 12th rib fracture Consultations: 20:25 Dr. Dickerson on-call orthopedics reviewed x-ray recommends transfer her periprosthetic fracture Treatments: Morphine Tylenol Re-evaluations: [ ] Discussion: Patient 83-year-old male presenting today with left hip pain after mechanical trip and fall. Neurovascularly he is intact but he is found to have a periprosthetic femur fracture. [facility] has been contacted. He actually had his hip replacement there in 2021. They are trying to contact his surgeon in regards to the best way to manage and treat this. Apparently all depend on what [facility] facility he goes to. Patient has been monitored here throughout the night he is comfortable condom catheter has been placed. Still having some pain actually found the right hip. Patient signed out to Dr. Renee waiting transfer 05/23/24, 0700, Víctor. Sign-out from Dr. Hale. 83-year-old male with history left hip arthroplasty at [facility] in 2021, had mechanical fall [place], left hip pain, on radiograph has periprosthetic fracture but no dislocation, also has right rib fracture on chest XRay. Local orthopedic surgery was consulted, requested transfer to higher level of care. Analgesics being given. Awaiting call back from [facility]. Assumed interim care. 0900, [facility] phone call update, still no /[facility] beds, will continue queries this morning 1200, still awaiting facility assignment 1430, patient has been accepted to [facility], awaiting bed availability at this time. Prior surgery to be in the [facility] system, patient does not want other facilities to be sought at this time, seems comfortable with pain management at this time. 1515, case discussed with hospitalist Dr. Harden, who accepts patient for transfer. Awaiting bed assignment later this afternoon 1830, bed assigned, ground EMS transport to [facility] <Alejandro Renee MD - Last Filed: 05/23/24 19:42> Lab Data Labs: Lab Results 05/22/24 Range/Units 20:30 WBC 9.3 (4.5-11.0) X10^3/uL RBC 3.61 L (4.5-5.9) X10^6/uL Hgb 11.6 L (13.5-17.5) g/dL Hct 33.1 L (41-53) % MCV 91.6 (80-100) fL MCH 32.0 (26-34) PG MCHC 35.0 (30-36) % RDW 14.3 (11.6-14.8) % Plt Count 324 (150-400) X10^3/uL Neut % (Auto) 84.0 H (50-75) % Lymph % (Auto) 5.6 L (25-40) % [place] % (Auto) 6.4 (3-14) % Eos % (Auto) 2.7 (2-4) % Baso % (Auto) 1.3 (0-2) % Neut # (Auto) 7800 H (6239-2678) /uL Lymph # (Auto) 500 L (6181-9730) /uL [place] # (Auto) 600 (0-900) /uL Eos # (Auto) 300 (0-450) /uL Baso # (Auto) 100 (0-100) /uL Sodium 131 L (137-145) mmol/L Potassium 3.8 (3.4-5.1) mmol/L Chloride 98 (98-107) mmol/L Carbon Dioxide 24 (22-32) mmol/L BUN 23 H (9-20) mg/dL Creatinine 1.14 (0.66-1.25) mg/dL Estimated GFR > 60 (>60) mL/min BUN/Creatinine Ratio 20.2 (6-22) Glucose 140 H (80-110) mg/dL Calcium 10.5 H (8.4-10.2) mg/dL Total Bilirubin 1.4 H (0.2-1.3) mg/dL AST 33 (17-59) IU/L ALT 26 (<50) IU/L Alkaline Phosphatase 102 (38-126) U/L Total Protein 6.9 (6.3-8.2) g/dL Albumin 4.3 (3.5-5.0) g/dL Globulin 2.6 (1.7-4.1) g/dL Albumin/Globulin Ratio 1.7 (1.0-2.8) MDM Narrative Medical decision making narrative: [facility] CC: Left hip pain right rib pain Complicating co-morbidities: Atrial fibrillation on Xarelto prior left [place] Medical records reviewed: [ ] Differential considered: [ ] Exam documented above, pertinent findings include: Awake alert 83-year-old male no obvious head trauma he does have pain in the left hip distal pedal pulse intact. Mild right-sided pain but no paradoxical movement Lab Test results independently reviewed as above. Pertinent findings: WBC 9.3 hemoglobin 11.6 hematocrit 33.1 platelets 324 Sodium 131 potassium 3.8 chloride 98 carbon dioxide 24 BUN 23 creatinine 1.1 Calcium 10.5 Bilirubin 1.4, AST 33 ALT 26 alk-phos 102 Independently reviewed EKG as above Imaging studies independently reviewed: X-ray shows periprosthetic left femur fracture Right 12th rib fracture Consultations: 20:25 Dr. Dickerson on-call orthopedics reviewed x-ray recommends transfer her periprosthetic fracture Treatments: Morphine Tylenol Re-evaluations: [ ] Discussion: Patient 83-year-old male presenting today with left hip pain after mechanical trip and fall. Neurovascularly he is intact but he is found to have a periprosthetic femur fracture. [facility] has been contacted. He actually had his hip replacement there in 2021. They are trying to contact his surgeon in regards to the best way to manage and treat this. Apparently all depend on what [facility] facility he goes to. Patient has been monitored here throughout the night he is comfortable condom catheter has been placed. Still having some pain actually found the right hip. 05/23/24, 0700Víctor. Sign-out from Dr. Hale. 83-year-old male with history left hip arthroplasty at [facility] in 2021, had mechanical fall [place], left hip pain, on radiograph has periprosthetic fracture but no dislocation, also has right rib fracture on chest XRay. Local orthopedic surgery was consulted, requested transfer to higher level of care. Analgesics being given. Awaiting call back from [facility]. Assumed interim care. 0900, [facility] phone call update, still no /[facility] beds, will continue queries this morning 1200, still awaiting facility assignment 1430, patient has been accepted to [facility], awaiting bed availability at this time. Prior surgery to be in the [facility] system, patient does not want other facilities to be sought at this time, seems comfortable with pain management at this time. 1515, case discussed with hospitalist Dr. Harden, who accepts patient for transfer. Awaiting bed assignment later this afternoon 1830, bed assigned, ground EMS transport to [facility] Discharge Plan Departure Patient Disposition: [facility] Clinical Impression: Fracture of left femur, History of left hip replacement, Right rib fracture, Fall from ground level, Chronic anticoagulation Prescriptions: No Action hydrochlorothiazide 25 mg tablet 25 mg PO DAILY amlodipine 5 mg tablet 5 mg PO DAILY hydrochlorothiazide 25 mg tablet 25 mg PO DAILY losartan 100 mg tablet 100 mg PO DAILY aspirin 81 mg Tablet 81 mg PO DAILY losartan [Cozaar] 100 mg Tablet 100 mg PO DAILY metformin 500 mg tablet 1,000 mg PO BID levothyroxine [Synthroid] 50 mcg tablet 50 mcg PO DAILY ascorbic acid (vitamin C) 1,000 mg capsule 1 g PO Q6H vitamin B complex [B Complex-Vitamin B12] Tablet 1 tab PO DAILY rosuvastatin 5 mg tablet 5 mg PO DAILY coenzyme [id number] 100-100 mg-unit capsule PO zinc acetate 25 mg (zinc) capsule 25 mg PO DAILY quercetin 500 mg capsule PO nitroglycerin 0.4 mg tablet, sublingual 0.4 mg sublingual Q5-15M PRN Rx Instructions: do not exceed 3 doses per episode cholecalciferol (vitamin D3) 50 mcg (2,000 unit) tablet,chewable 6,000 unit PO DAILY Xarelto 20 mg tablet 20 mg PO DAILY Rx Instructions: must administer with evening meal multivitamin Tablet 1 tab PO DAILY amlodipine 2.5 mg tablet 2.5 mg PO DAILY Referrals: Santiago Godfrey MD [Primary Care Provider] -
[2024-05-22 20:36] LABS: Add Manual Diff / Slide Review NO; Basophils Absolute Auto 100 /uL (0-100); Basophils Percent Auto 1.3 % (0-2); Eosinophils Absolute Auto 300 /uL (0-450); Eosinophils Percent Auto 2.7 % (2-4); Hematocrit 33.1 % (41-53); Hemoglobin 11.6 g/dL (13.5-17.5); Lymphocytes Absolute Auto 500 /uL (1100-4500); Lymphocytes Percent Auto 5.6 % (25-40); Mean Corpuscular Volume 91.6 fL (80-100); Monocytes Absolute Auto 600 /uL (0-900); Monocytes Percent Auto 6.4 % (3-14); Neutrophils Absolute Auto 7800 /uL (1500-7000); Platelet Count 324 X10^3/uL (150-400); Red Blood Cell Count 3.61 X10^6/uL (4.5-5.9); Red Cell Distribution Width 14.3 % (11.6-14.8); White Blood Cell Count 9.3 X10^3/uL (4.5-11.0)
[2024-05-22] MEDS: MORPHINE 2 MG/ML INJ IV (20:36)
[2024-05-22 20:45] LABS: Alanine Aminotransferase 26 IU/L (<50); Albumin 4.3 g/dL (3.5-5.0); Albumin Globulin Ratio 1.7 (1.0-2.8); Alkaline Phosphatase 102 U/L (38-126); Aspartate Aminotransferase 33 IU/L (17-59); BUN Creatinine Ratio 20.2 (6-22); Bilirubin Total 1.4 mg/dL (0.2-1.3); Blood Urea Nitrogen 23 mg/dL (9-20); Calcium 10.5 mg/dL (8.4-10.2); Carbon Dioxide 24 mmol/L (22-32); Chloride 98 mmol/L (98-107); Estimated Glomerular Filt Rate > 60 mL/min (>60); Globulin 2.6 g/dL (1.7-4.1); Glucose 140 mg/dL (80-110); HEMOLYSIS < 15 (0-50); Potassium 3.8 mmol/L (3.4-5.1); Sodium 131 mmol/L (137-145); Total Protein 6.9 g/dL (6.3-8.2)
[2024-05-23] VITALS (33 sets, daily range): BP systolic 129–171; BP diastolic 58–100; PULSE 59–72; RESP 18; O2SAT 95–98
[2024-05-23] MEDS: HYDROCODONE/ACET 5/325 TABLET 1 TAB PO (07:48)
--- NOTE | 2024-05-23 15:40 | EKG_ITS ---
[id number] [address] Test Date: 2024-05-23 Pat Name: Franco Rodríguez Department: Room: Gender: Male Data Security Analyst: casey : 1940 Requested By: Order Number: [id number] Reading MD: Oni Castaneda Measurements Intervals [place] Rate: 72 P: [place]: QRS: 78 QRSD: 76 T: 22 QT: 380 QTc: 416 Interpretive Statements Undetermined rhythm Low voltage QRS Nonspecific ST abnormality Electronically Signed On 05-24-2024 11:19:10 PST by Oni Castaneda
[2024-05-23] MEDS: MORPHINE 2 MG/ML INJ IV (18:33)
--- NOTE | 2024-05-23 20:36 | PC.NURSE ---
Gave report to Meghan RN at
== END 2024-05-23 18:51 | disposition short-term general hospital (02) ==
PROVIDERS: Emergency Medicine; Emergency Provider Emergency Medicine; PCP Internal Medicine
DX: S72.002A Fracture of unspecified part of neck of left femur, initial encounter for closed fracture (principal); M97.02XA Periprosthetic fracture around internal prosthetic left hip joint, initial encounter; W01.0XXA Fall on same level from slipping, tripping and stumbling without subsequent striking against object, initial encounter
CPT/HCPCS: 36415; 71101; 73502; 73552; 80053; 85025; 93005; 96374; 96376; 99284; 99285; J2270

== ENCOUNTER → 2024-08-24 11:03 | Outpatient (CLI) | payer MEDICARE, OTHER, SELFPAY ==
[2022-01-23 15:57] VITALS: BMI 25.4
--- NOTE | 2024-08-24 11:04 | DI.MRI.S_ITS ---
PROCEDURE: MR STROKE Pre- and post-contrast brain MRI, non-contrast brain MR angiogram, pre- and postcontrast neck MR angiogram INDICATIONS: localized visual field defect, bi/cerebral infarct TECHNIQUE: Brain: Noncontrast axial T1 spin echo, axial T2 fast spin echo, sagittal and axial FLAIR, coronal T2 fast spin echo, axial gradient echo, axial diffusion and ADC through the brain. After the administration of contrast, axial 3D VIBE of the cranial vasculature and brain. Brain MRA: Non-contrast 3-D time of flight MR angiogram, with multiple zjmhjvg-wqmslxlto-yqzyaapxcl (MIP) reformats performed. Neck MRA: Axial and sagittal TruFISP through the neck. Coronal dynamic MR angiogram during administration of contrast in the arterial and venous phases, with 3-dimenstional uxmnhwj-ldeshxloh-tcnbdgypqj (MIP) reformats constructed from subtraction images. COMPARISON: [facility], CT, CT HEAD/BRAIN WO CON, 02/26/2024, 15:52. FINDINGS: Image quality: Excellent. BRAIN: CSF spaces: Ex vacuo dilatation of the occipital horn of left lateral ventricle. Ventricles are otherwise normal in size and shape. Basal cisterns are patent. No extra-axial fluid collections. Brain: No intracranial bleeds or mass effects. There is moderate diffuse cerebral volume loss. There is a mild degree of patchy high FLAIR signal within the periventricular subcortical white matter. There is a moderate chronic left posteromedial occipital lobe infarct. Paz-white matter interface is normal. Diffusion weighted images show no acute infarct. Brainstem appears normal. Normal intravascular flow voids are present. No abnormal intracranial enhancement. Skull and face: Calvarial marrow signal is normal. Orbits appear normal. Sinuses: Sinuses and mastoids are clear. BRAIN MR ANGIOGRAM: Anterior circulation: Intracranial internal carotid arteries are normal in size and enhancement. The flow within the paired anterior cerebral arteries is normal and symmetric. The flow within the middle cerebral arteries is normal and symmetric. The anterior communicating artery is seen. No stenoses, occlusions, or aneurysms. Posterior circulation: Right vertebral artery terminates in a posterior inferior cerebellar artery. Left vertebral artery is patent. Basilar artery is patent. The flow within the posterior cerebral arteries is normal and symmetric. No stenoses, occlusions, or aneurysms. NECK MR ANGIOGRAM: Thoracic aortic arch is patent. Common origin of the innominate and left common carotid arteries, which is patent. Innominate, right subclavian, and small caliber right vertebral artery, are patent. Right vertebral artery terminates in a posterior inferior cerebellar artery. Right common, internal, and external carotid carotid arteries are patent. Right internal carotid artery pharyngeal loop. Left common, internal, and external carotid arteries are patent. Left internal carotid artery pharyngeal loops. Left subclavian and dominant left vertebral arteries are patent. Soft tissues of the neck are within normal limits. IMPRESSION: BRAIN MRI: 1. No acute process. No recent infarct. 2. Volume loss and small vessel ischemic disease. 3. Chronic left occipital lobe infarct. BRAIN MR ANGIOGRAM: Negative examination. NECK MR ANGIOGRAM: No evidence of internal carotid artery or vertebral artery stenosis. Dictated by: Deepika Chaidez M.D. on 08/24/2024 at 12:52 Approved by: Deepika Chaidez M.D. on 08/24/2024 at 12:57
== END ==
PROVIDERS: PCP Internal Medicine; Referring Provider Ophthalmology; Visit Provider Ophthalmology
DX: I63.89 Other cerebral infarction (principal); H53.453 Other localized visual field defect, bilateral
CPT/HCPCS: 70544; 70549; 70553; A9579